=== PATIENT | female | born 1940 ===

== ENCOUNTER 2017-02-02 13:21 | Inpatient (IN) | payer MEDICARE ==
[2017-02-02 20:00] VITALS: BP 116/58; PULSE 77; RESP 18; TEMP 96.2; O2SAT 93
--- NOTE | 2017-02-02 22:46 | HHI.HP ---
History of Present Illness Chief Complaint: abdominal pain, ileus History of Present Illness 76 yo female whom I saw in consultation on 01/03/17 as an outpatient for a TAAA. She at that time had a bilobed aneurysm and the abdominal component was larger (nearly 6 cm) but also had a SMA stenosis. She had no abdominal pain at that time but did have intense back pain after a fall for which she was planning to undergo kyphoplasty. She did this and according to subsequent phone conversations I had with her and her , the back pain was better but not gone. Her aneurysm to my palpation has always been nontender and certainly on CT it was never ruptured or leaking. She was admitted to OSH about 2 weeks ago with acute cholecystitis and choledocholithiasis, and underwent lap rosa and IOC without successful extraction of the CBD stone. Ultimately this was cleared via ERCP and sphincterotomy, which was complicated by pancreatitis. The patient has had a prolonged course since then with a non- resolving ileus vs SBO. At present, she has no NGT and is not nauseated. She is passing gas. Her family requested a transfer here and I am concerned that the "failure to progress" may be in at least part, related to her mesenteric occlusion. Past/Family/Social History Past Medical History AAA TAA CVOD with CVA hyperlipidemia HTN Past Surgical History pacer lap rosa as above Social History former smoker Coded Allergies: No Known Allergies (Unverified , 02/02/17) Review of Systems ROS Limitations: Altered Mental Status (somnolent but awakens appropriately) Cardiovascular: DENIES: Chest pain Gastrointestinal: COMPLAINS OF: Abdominal pain, Nausea, Vomiting Musculoskeletal: COMPLAINS OF: Muscle aches, Back pain Physical Exam Vitals/I&O Date Time Temp Pulse Resp B/P Pulse Ox O2 Delivery O2 Flow Rate FiO2 02/02/17 20:00 96.2 77 18 116/58 93 Neuro: somnolent but arouses appropriately and conversant; no focal deficits HEENT: NC/AT Neck: no JVD Heart: reg rate Lungs: nonlabored breathing Abdomen: nontender, manoj-umbilical incision with fullness ? bowel vs hematoma vs fluid No peritonitis and really no guarding Vascular: palpable UE pulses and femoral pulses Assessment and Plan Plan 1. NC CT A/P to eval ileus vs SBO and also r/o incarcerated incisional hernia 2. May ultimately require po contrast study 3. NPO and MIVF; hold NGT unless emesis 4. CV protective meds: ASA, statin, beta magdy 5. Zosyn x 14d total for acute cholecystitis 6. Labs on adm: BMP, CBC, LFT, amylase/lipase 7. Once the ileus resolves, will need complex aortic reconstruction with SMA bypass at some point. Connor Luna MD FACS marketing representative [facility] - Heart and Vascular at [facility] [phone] Connor Luna MD Feb 02, 2017 22:46
--- NOTE | 2017-02-02 22:58 | RADRPT ---
EXAM DATE/TIME: 02/02/2017 22:40 [place] COMPARISON: No previous studies available for comparison. INDICATIONS : Recent cholecystectomy; evaluate for hernia. ORAL CONTRAST: No oral contrast ingested. RADIATION DOSE: 5.07 CTDIvol (mGy) MEDICAL HISTORY : Aneurysm, abdominal. Hypertension. SURGICAL HISTORY : Cholecystectomy. Pacemaker. ENCOUNTER: Initial ACUITY: 1 day PAIN SCALE: 5/10 LOCATION: Abdomen/pelvis TECHNIQUE: Volumetric scanning of the abdomen and pelvis was performed. Using automated exposure control and ad justment of the mA and/or kV according to patient size, radiation dose was kept as low as reasonably achievable to obtain optimal diagnostic quality images. FINDINGS: There is prominent atherosclerotic calcification of the aorta and coronary artery calcifications. The re is aneurysmal dilatation of the descending thoracic aorta at the aortic hiatus measuring 5.3 x 4.3 cm in transverse and AP dimension on axial image 22. There is a large abdominal aortic aneurysm prox imal infrarenal location measuring 7.0 x 3.7 cm in AP and transverse dimension on image 37 and at the level of the inferior mesenteric artery origin the aorta measures 6.3 x 5.7 cm in AP and transverse dimension. There is aneurysmal dilatation of the right common iliac artery at the bifurcation measuri ng up to 3.2 cm. There is contrast within the urinary bladder and throughout the large bowel with div erticulosis of the sigmoid and descending colon as well as the transverse colon. There are surgical c lips in the right upper quadrant from recent cholecystectomy. There is pneumobilia present within the common duct and intrahepatic biliary tree. There is marked distention of the stomach, and numerous d ilated loops of small intestine are noted up to 3.6 cm. There are decompressed loops of bowel in the right lower quadrant. There is a focal abdominal wall hernia at the level of the umbilicus containing contrast-filled small intestine, transverse abdominal wall defect measuring 1.2 cm. This is believed to be causing an obstruction. A there is no adenopathy. Uterus unremarkable. Spleen, pancreas, adren al glands unremarkable. There is a right-sided pleural effusion and right middle lobe and lower lobe consolidation as well as patchy lingular and left lower lobe airspace disease. CONCLUSION: 1. Small bowel obstruction with marked distention of bowel loops and stomach secondary to an abdomina l wall hernia containing a focal loop of small bowel at the level of the umbilicus. 2. The thoracic and abdominal aortic aneurysms are noted as described above. 3. Pneumobilia. 4. Pneumonia and right effusion. Carlos Eduardo Davenport MD on February 02, 2017 at 22:53 Board Certified Radiologist. This report was verified electronically.
[2017-02-02] MEDS ORDERED: LACTATED RINGER'S 1000 ML INJ 1,000 ML IV SCH (23:00)
[2017-02-02] MEDS ORDERED: DEXTROSE 50% IN WATER 50 ML VIAL(D50) IV PUSH PRN (23:00)
[2017-02-02] MEDS ORDERED: GLUCAGON 1 MG/ML VIAL OTHER PRN (23:00)
[2017-02-02] MEDS: PIPERACIL-TAZO 3.375 GM PREMIX 50 ML IV SCH (23:43)
[2017-02-02] MEDS: ENOXAPARIN SODIUM 30 MG/0.3 ML SYRINGE SQ SCH (23:43)
[2017-02-03] VITALS: BP 135/71; PULSE 80; RESP 16; TEMP 97.8; O2SAT 93
[2017-02-03 00:16] LABS: HEMATOCRIT 35.2 % (35.0-46.0); MEAN CORPUSCULAR HEMOGLOBIN 29.2 PG (27.0-34.0); MEAN CORPUSCULAR HGB CONC 31.8 % (32.0-36.0); PLATELET COUNT 250 TH/MM3 (150-450); RED BLOOD COUNT 3.83 MIL/MM3 (4.00-5.30); RED CELL DISTRIBUTION WIDTH 14.5 % (11.6-17.2); REVIEW FLAG FINAL; WHITE BLOOD COUNT 22.4 TH/MM3 (4.0-11.0)
[2017-02-03 00:40] LABS: BICARBONATE 31.4 MEQ/L (21.0-32.0)
[2017-02-03 00:45] LABS: POTASSIUM 2.9 MEQ/L (3.5-5.1)
[2017-02-03 01:53] LABS: AMYLASE 20 U/L (25-115)
[2017-02-03] MEDS: POTASSIUM CHLOR 20 MEQ PREMIX 100 ML IV SCH ×5 (02:26→22:12)
[2017-02-03 04:00] VITALS: BP 121/64; PULSE 79; RESP 18; TEMP 97.4; O2SAT 95
[2017-02-03] MEDS: PIPERACIL-TAZO 3.375 GM PREMIX 50 ML IV SCH ×3 (05:36→19:36)
[2017-02-03 05:58] LABS: MEAN CELL VOLUME 91.2 FL (80.0-100.0); MEAN CORPUSCULAR HGB CONC 32.9 % (32.0-36.0); PLATELET COUNT 247 TH/MM3 (150-450); RED BLOOD COUNT 3.51 MIL/MM3 (4.00-5.30); RED CELL DISTRIBUTION WIDTH 14.7 % (11.6-17.2); REVIEW FLAG FINAL
[2017-02-03 06:13] LABS: BICARBONATE 28.8 MEQ/L (21.0-32.0); INDIRECT BILIRUBIN 0.4 MG/DL (0.0-0.8)
[2017-02-03 06:19] LABS: POTASSIUM 2.8 MEQ/L (3.5-5.1)
[2017-02-03] MEDS: INSULIN NovoLIN REGULAR SUPPLEMENTAL SCALE SQ SCH ×3 (06:46→21:00)
[2017-02-03 08:00] VITALS: BP 136/78; PULSE 73; RESP 21; TEMP 96.3; O2SAT 95
[2017-02-03] MEDS: ASPIRIN 81 MG CHEW TAB PO SCH (08:37)
[2017-02-03] MEDS: PANTOPRAZOLE SOD 40 MG DELAYED RELEASE TAB PO SCH (08:37)
[2017-02-03] MEDS: METOPROLOL TARTRATE 25 MG TAB PO SCH ×2 (09:24→21:00)
[2017-02-03] MEDS ORDERED: BUPIVACAINE/EPINEPHRINE 0.25% 50 ML VIAL ONE (10:23)
[2017-02-03] MEDS ORDERED: GELFOAM SIZE 100 ONE (10:23)
--- NOTE | 2017-02-03 10:29 | PD.VS.PN ---
Subjective Subjective/Hospital Course Pt admitted last night and on my initial exam, I thought there was a periumbilical incisional hernia, and indeed confirmed on CT. Dr. Bui, general surgery saw patient and agreed. He has plans to perform laparoscopy today. Mrs. Ochoa feels well today and has no abdominal pain. NGT with significant output Objective Vitals/I&O Date Time Temp Pulse Resp B/P Pulse Ox O2 Delivery O2 Flow Rate FiO2 02/03/17 08:00 96.3 73 21 136/78 95 02/03/17 04:00 97.4 79 18 121/64 95 02/03/17 00:00 97.8 80 16 135/71 93 02/02/17 20:00 96.2 77 18 116/58 93 Physical Exam Resting comfortably No abdominal pain Periumbilical incision c/d/i with + hernia in place, nontender Laboratory Laboratory Tests Test 02/02/17 02/02/17 02/03/17 23:53 23:59 04:37 Amylase Level 20 Lipase 160 White Blood Count 22.4 20.0 Red Blood Count 3.83 3.51 Hemoglobin 11.2 10.5 Hematocrit 35.2 32.0 Mean Corpuscular Volume 92.0 91.2 Mean Corpuscular Hemoglobin 29.2 30.0 Mean Corpuscular Hemoglobin 31.8 32.9 Concent Red Cell Distribution Width 14.5 14.7 Platelet Count 250 247 Mean Platelet Volume 8.4 8.8 Sodium Level 147 149 Potassium Level 2.9 2.8 Chloride Level 107 110 Carbon Dioxide Level 31.4 28.8 Anion Gap 9 10 Blood Urea Nitrogen 26 25 Creatinine 0.88 0.82 Estimat Glomerular Filtration 63 68 Rate Random Glucose 89 78 Calcium Level 7.6 7.6 Total Bilirubin 1.0 Direct Bilirubin 0.6 Indirect Bilirubin 0.4 Aspartate Amino Transf 22 (AST/SGOT) Alanine Aminotransferase 17 (ALT/SGPT) Alkaline Phosphatase 181 Total Protein 5.2 Albumin 2.0 Imaging Last 48 hours Impressions Abdomen/Pelvis CT 02/02/17 0000 Signed Impressions: Service Date/Time: Thursday, February 02, 2017 22:40 - CONCLUSION: 1. Small bowel obstruction with marked distention of bowel loops and stomach secondary to an abdominal wall hernia containing a focal loop of small bowel at the level of the umbilicus. 2. The thoracic and abdominal aortic aneurysms are noted as described above. 3. Pneumobilia. 4. Pneumonia and right effusion. Carlos Eduardo Davenport MD Assessment and Plan Plan 1. Laparoscopy today for incarcerated hernia. If bowel globally ok, will hold off mesenteric revascularization. 2. NPO and MIVF; replace NGT output and recheck e-lytes at 1400 3. CV protective meds: ASA, statin, beta magdy 4. Zosyn d/c date 02/09 5. Pancreatitis has resolved chemically 6. Will get her over SBO and plan d/c with outpatient f/u to discuss aortic surgery: likely FAMILIA reconstruction and retrograde SMA revascularization 7. I discussed this plan with the patient's daughter and over the phone. They agree to plan. [phone] / [phone] Connor Luna MD FACS vp hr diversity [facility] - Heart and Vascular at [facility] [phone] Connor Luna MD Feb 03, 2017 10:29
[2017-02-03] MEDS ORDERED: SUGAMMADEX SODIUM 200 MG/2 ML VIAL IV PUSH ONE ×2 (10:34)
[2017-02-03] MEDS ORDERED: MIDAZOLAM HCL 2 MG/2 ML VIAL ONE ×3 (10:34→14:26)
[2017-02-03] MEDS ORDERED: FAMOTIDINE 20 MG/2 ML VIAL ONE ×2 (10:35→10:45)
[2017-02-03] MEDS ORDERED: PROPOFOL 200 MG/20 ML AMP IV ONE (12:17)
[2017-02-03] MEDS ORDERED: PHENYLEPH/NS 1000 MCG/10 ML SYR IV ONE (12:17)
[2017-02-03] MEDS ORDERED: ONDANSETRON HCL 4 MG/2 ML VIAL IV PUSH ONE (12:17)
[2017-02-03] MEDS ORDERED: NORMOSOL R INJ 1,000 ML IV ONE (12:17)
[2017-02-03] MEDS ORDERED: DO NOT ADM ANY ANTICOAGULANT DRUGS XX PRN (12:56)
[2017-02-03] MEDS ORDERED: fentaNYL CITRATE 250 MCG/5 ML AMP ONE (13:07)
[2017-02-03] MEDS ORDERED: MORPHINE SULFATE 4 MG/ML INJ IV PUSH PRN (14:00)
[2017-02-03] MEDS ORDERED: ONDANSETRON HCL 4 MG/2 ML VIAL IV PUSH PRN (14:00)
--- NOTE | 2017-02-03 14:04 | EKG ---
Date Performed: 02/03/2017 Time Performed: 08:24:57 PTAGE: 76 years EKG: Sinus rhythm NONSPECIFIC T-WAVE ABNORMALITY Compared to prior tracing no significant change BORDERLINE ECG PREVIOUS TRACING :02/03/17 @ 01:11:16 DOCTOR: Jose L Paris Interpretating Date/Time 02/03/2017 14:03:36
--- NOTE | 2017-02-03 14:04 | EKG ---
Date Performed: 02/03/2017 Time Performed: 01:11:16 PTAGE: 76 years EKG: Sinus rhythm poor r wave progression Abnormal ECG NO PREVIOUS TRACING DOCTOR: Jose L Paris Interpretating Date/Time 02/03/2017 14:03:01
--- NOTE | 2017-02-03 14:09 | HHI.PR ---
Immediate Post Op Note Procedure Date: Feb 03, 2017 Pre Op Diagnosis: sbo secondary to incarcerated umbilical incisional hernia Post Op Diagnosis: incarcerated viable small bowel Surgeon: Frank Bui Associate Professor Of Psychology(s): james brown Procedure: exp lap, erika, reduction of incarcerated small bowel Complications: none Anesthesia: General Drains: None IVF Patient to: PACU Patient Condition: Frank Lehman MD Feb 03, 2017 14:09
[2017-02-03 16:00] VITALS: BP 124/66; PULSE 63; RESP 18; TEMP 95.4; O2SAT 96
--- NOTE | 2017-02-03 16:55 | PD.CONS ---
cc: Mat Victor MD HPI Service General Surgery Consult Requested By Dr. Luna Reason for Consult Eval incarcerated umbilical hernia with bowel obstruction Primary Care Physician Unknown History of Present Illness This is a 76-year-old female who had a laparoscopic cholecystectomy with ERCP and sphincterotomy at outside hospital 2 weeks ago. She was transferred to this facility from [facility] in [place]. At this facility the patient had a small bowel obstruction versus ileus without any resolution. The patient was transferred to this facility per the family's request to see Dr. Luna for evaluation of her mesenteric occlusion. Upon Dr. Luna's physical examination he found an incarcerated umbilical hernia. A nasogastric tube was placed. A general surgery consultation was requested for evaluation of her incarcerated umbilical hernia with small bowel obstruction. Review of Systems Constitutional: DENIES: Fever, Weight gain, Weight loss Endocrine: DENIES: Polydipsia, Polyuria, Polyphagia Eyes: DENIES: Blurred vision, Eye pain Ears, nose, mouth, throat: DENIES: Hearing loss, Vertigo Respiratory: DENIES: Cough, Snoring Cardiovascular: DENIES: Chest pain Gastrointestinal: COMPLAINS OF: Abdominal pain, Nausea, Vomiting Genitourinary: DENIES: Urgency, Hematuria Musculoskeletal: DENIES: Joint pain, Stiffness, Joint Swelling Integumentary: DENIES: Abnormal pigmentation Hematologic/lymphatic: DENIES: Bruising Immunologic/allergic: DENIES: Eczema Neurologic: DENIES: Abnormal gait Psychiatric: DENIES: Mood changes, Depression, Hallucinations Past Family Social History Past Medical History AAA TAA CVOD with CVA hyperlipidemia HTN Past Surgical History pacer placement Laparoscopic cholecystectomy (January 2016 at OSH) Reported Medications See chart Allergies: Coded Allergies: No Known Allergies (Unverified , 02/02/17) Active Ordered Medications Current Medications Medications (Trade) Dose Ordered Sig/Thomas Route Start Time Stop Time Status Last Admin (Lr 1000 ml Inj) 1,000 ml @ 63 mls/hr [id number] IV 02/02/17 23:00 02/02/17 23:43 (Aspirin Chew) 81 mg DAILY PO 02/03/17 09:00 (Protonix) 40 mg DAILY PO 02/03/17 09:00 (Lopressor) 25 mg BID PO 02/03/17 09:00 02/03/17 09:24 (Lipitor) 40 mg HS PO 02/03/17 21:00 Enoxaparin Sodium 30 mg 30 mg Q24H SQ 02/02/17 23:00 02/02/17 23:43 (Zosyn 3.375 Gm Premix) 50 ml @ 100 mls/hr Q6H IV 02/02/17 23:00 02/03/17 11:41 (D50w (Vial) Inj) 25 ml UNSCH PRN IV PUSH 02/02/17 23:00 02/03/17 13:05 (Glucagon Inj) 1 mg UNSCH PRN OTHER 02/02/17 23:00 Miscellaneous Information ALL NURSING DEPARTME... UNSCH PRN XX 02/03/17 12:56 02/04/17 12:55 (Morphine Inj) 4 mg Q3H PRN IV PUSH 02/03/17 14:00 02/03/17 15:26 (Zofran Inj) 4 mg Q6H PRN IV PUSH 02/03/17 14:00 Family History Noncontributory Social History Former smoker Denies EtOH use Physical Exam Vital Signs Vital Signs Date Time Temp Pulse Resp B/P Pulse Ox O2 Delivery O2 Flow Rate FiO2 02/03/17 16:00 95.4 63 18 124/66 96 02/03/17 14:00 75 12 130/81 99 Nasal Cannula 2 02/03/17 13:45 70 15 135/90 100 Nasal Cannula 2 02/03/17 13:30 73 14 147/89 99 Nasal Cannula 2 02/03/17 13:15 76 15 148/89 100 Nasal Cannula 2 02/03/17 13:00 92 14 140/66 97 Nasal Cannula 2 02/03/17 12:53 97.3 110 14 112/68 95 Simple Mask 6 02/03/17 08:00 96.3 73 21 136/78 95 02/03/17 04:00 97.4 79 18 121/64 95 02/03/17 00:00 97.8 80 16 135/71 93 02/02/17 20:00 96.2 77 18 116/58 93 Physical Exam GENERAL: Elderly female resting in bed with nasogastric tube in place SKIN: Warm and dry. HEAD: Atraumatic. Normocephalic. EYES: Pupils equal and round. No scleral icterus. No injection or drainage. ENT: No nasal bleeding or discharge. Mucous membranes pink and moist. NECK: Trachea midline. CARDIOVASCULAR: Regular rate and rhythm. RESPIRATORY: No accessory muscle use. Clear to auscultation. Breath sounds equal bilaterally. GASTROINTESTINAL: Abdomen soft, umbilical hernia manually reducible. Prior laparoscopic sites are healing. MUSCULOSKELETAL: Extremities without clubbing, cyanosis, or edema. No obvious deformities. NEUROLOGICAL: Awake and alert. No obvious cranial nerve deficits. Motor grossly within normal limits. Five out of 5 muscle strength in the arms and legs. Normal speech. PSYCHIATRIC: Appropriate mood and affect; insight and judgment normal. Laboratory Laboratory Tests Test 02/02/17 02/02/17 02/03/17 02/03/17 23:53 23:59 04:37 12:00 Amylase Level 20 Lipase 160 White Blood Count 22.4 20.0 Red Blood Count 3.83 3.51 Hemoglobin 11.2 10.5 Hematocrit 35.2 32.0 Mean Corpuscular Volume 92.0 91.2 Mean Corpuscular Hemoglobin 29.2 30.0 Mean Corpuscular Hemoglobin 31.8 32.9 Concent Red Cell Distribution Width 14.5 14.7 Platelet Count 250 247 Mean Platelet Volume 8.4 8.8 Sodium Level 147 149 Potassium Level 2.9 2.8 Chloride Level 107 110 Carbon Dioxide Level 31.4 28.8 Anion Gap 9 10 Blood Urea Nitrogen 26 25 Creatinine 0.88 0.82 Estimat Glomerular Filtration 63 68 Rate Random Glucose 89 78 Calcium Level 7.6 7.6 Total Bilirubin 1.0 Direct Bilirubin 0.6 Indirect Bilirubin 0.4 Aspartate Amino Transf 22 (AST/SGOT) Alanine Aminotransferase 17 (ALT/SGPT) Alkaline Phosphatase 181 Total Protein 5.2 Albumin 2.0 Blood Type O POSITIVE Antibody Screen NEGATIVE Blood Bank Comment Result Diagram: 02/03/17 0437 02/03/17 0437 Imaging Last 48 hours Impressions Abdomen/Pelvis CT 02/02/17 0000 Signed Impressions: Service Date/Time: Thursday, February 02, 2017 22:40 - CONCLUSION: 1. Small bowel obstruction with marked distention of bowel loops and stomach secondary to an abdominal wall hernia containing a focal loop of small bowel at the level of the umbilicus. 2. The thoracic and abdominal aortic aneurysms are noted as described above. 3. Pneumobilia. 4. Pneumonia and right effusion. Carlos Eduardo Davenport MD Assessment and Plan Assessment and Plan This is a 76-year-old female status post laparoscopic cholecystectomy and outside facility with a transferred to [facility] for evaluation by vascular surgery. The patient was found to have a incarcerated umbilical hernia with a small bowel obstruction -Plan to take to the operating room today with Dr. victor -Nothing by mouth -NG tube to low intermittent wall suction -Obtain consent I CERTIFY AND ATTEST THAT I PERSONALLY SAW AND EXAMINED THE PATIENT. THE ENCOUNTER WAS DOCUMENTED BY THE OUTPATIENT THERAPIST AND ORDERS WERE ENTERED INTO THE EMR UNDER MY DIRECT SUPERVISION. I DISCUSSED THE CARE PLAN WITH THE FAMILY AND RN AT THE BEDSIDE. WILL PROCEED IMMEDIATELY TO THE OPERATING ROOM. NOTIFIED BY PHONE AND IS EN ROUTE MAT VICTOR MD FACS Pearl Villarreal [facility] Feb 03, 2017 16:55 Mat Victor MD Feb 12, 2017 13:32
--- NOTE | 2017-02-03 18:26 | PD.CONS ---
HPI Service [facility] Consult Requested By Reason for Consult Judgment of electrolyte abnormalities and comorbidities Primary Care Physician Unknown Diagnoses: History of Present Illness Patient is a 76-year-old female with history of transabdominal aortic aneurysm, history of 2 CVAs in the past, history of CAD status post [place] 2 years ago, history of AICD placement who had the laparoscopic cholecystectomy done with the ER 2 weeks ago. For the past 5 days had been complaining of nausea vomiting and abdominal pain. Per with poor po intake. sHe was transferred here on the request of the family to be evaluated by Dr. Patricia the vascular surgeon who did her aortic aneurysm repair. On evaluation here was noted to have an incarcerated umbilical hernia and [facility] was promptly called, had laparoscopic surgery with repair of incarcerated hernia. Patient is currently seen postoperatively with at bedside. Patient appears weak , open eyes and followed all commands but however is still under her anesthesia effect. She moves all extremities equally. Just received IV pain meds[facility] abnormalities and the comorbid factors. Review of Systems ROS Limitations: Clinical Condition Past Family Social History Allergies: Coded Allergies: No Known Allergies (Unverified , 02/02/17) Past Medical History History of triple a History of CVA History of CAD status post [place] History of hyperlipidemia History of hypertension Past Surgical History As stated 2 weeks ago had laparoscopic cholecystectomy Reported Medications Amiodarone 400 mg daily Lipitor 40 mg daily Plavix 75 mg daily Losartan 25 mg half tab daily Hydrocodone 5/325 mg 1 tab when necessary for back pain which has been states she takes sparingly. Active Ordered Medications See EMR Family History Noncontributory Social History History of smoking quit many many years ago Denies any alcohol use Physical Exam Vital Signs Vital Signs Date Time Temp Pulse Resp B/P Pulse Ox O2 Delivery O2 Flow Rate FiO2 02/03/17 16:00 95.4 63 18 124/66 96 02/03/17 14:00 75 12 130/81 99 Nasal Cannula 2 02/03/17 13:45 70 15 135/90 100 Nasal Cannula 2 02/03/17 13:30 73 14 147/89 99 Nasal Cannula 2 02/03/17 13:15 76 15 148/89 100 Nasal Cannula 2 02/03/17 13:00 92 14 140/66 97 Nasal Cannula 2 02/03/17 12:53 97.3 110 14 112/68 95 Simple Mask 6 02/03/17 08:00 96.3 73 21 136/78 95 02/03/17 04:00 97.4 79 18 121/64 95 02/03/17 00:00 97.8 80 16 135/71 93 02/02/17 20:00 96.2 77 18 116/58 93 Physical Exam GENERAL: Appears weak, not in acute distress, awakens easily (just postop", speech soft but clear oriented 3 SKIN: No rashes, ecchymoses or lesions. Cool and dry. HEAD: Atraumatic. Normocephalic. EYES: Pupils equal round and reactive. Extraocular motions intact. No scleral icterus. No injection or drainage. ENT: Nose without bleeding, purulent drainage or septal hematoma.Airway patent. NECK: Trachea midline. No JVD or lymphadenopathy. Supple, nontender, CARDIOVASCULAR: Regular rate and rhythm without murmurs, RESPIRATORY: Clear to auscultation. Breath sounds equal bilaterally. No wheezes , rales, or rhonchi. GASTROINTESTINAL: Well-healed post laparoscopic cholecystectomy scars, postop dressing in place MUSCULOSKELETAL: Extremities without clubbing, cyanosis, or edema. No joint tenderness, effusion, or edema noted. No calf tenderness. Moves all extremities to command- limited post anesthesia Laboratory Laboratory Tests Test 02/02/17 02/02/17 02/03/17 02/03/17 23:53 23:59 04:37 12:00 Amylase Level 20 Lipase 160 White Blood Count 22.4 20.0 Red Blood Count 3.83 3.51 Hemoglobin 11.2 10.5 Hematocrit 35.2 32.0 Mean Corpuscular Volume 92.0 91.2 Mean Corpuscular Hemoglobin 29.2 30.0 Mean Corpuscular Hemoglobin 31.8 32.9 Concent Red Cell Distribution Width 14.5 14.7 Platelet Count 250 247 Mean Platelet Volume 8.4 8.8 Sodium Level 147 149 Potassium Level 2.9 2.8 Chloride Level 107 110 Carbon Dioxide Level 31.4 28.8 Anion Gap 9 10 Blood Urea Nitrogen 26 25 Creatinine 0.88 0.82 Estimat Glomerular Filtration 63 68 Rate Random Glucose 89 78 Calcium Level 7.6 7.6 Total Bilirubin 1.0 Direct Bilirubin 0.6 Indirect Bilirubin 0.4 Aspartate Amino Transf 22 (AST/SGOT) Alanine Aminotransferase 17 (ALT/SGPT) Alkaline Phosphatase 181 Total Protein 5.2 Albumin 2.0 Blood Type O POSITIVE Antibody Screen NEGATIVE Blood Bank Comment Result Diagram: 02/03/17 0437 02/03/17 0437 Imaging Last Impressions Abdomen/Pelvis CT 02/02/17 0000 Signed Impressions: Service Date/Time: Thursday, February 02, 2017 22:40 - CONCLUSION: 1. Small bowel obstruction with marked distention of bowel loops and stomach secondary to an abdominal wall hernia containing a focal loop of small bowel at the level of the umbilicus. 2. The thoracic and abdominal aortic aneurysms are noted as described above. 3. Pneumobilia. 4. Pneumonia and right effusion. Carlos Eduardo Davenport MD Assessment and Plan Assessment and Plan 76-year-old female admitted for small bowel obstruction Small bowel obstruction secondary to incarcerated umbilical hernia status post explore lap Status post exploratory lap with repair #0 Surgery following closely Leukocytosis- likely Sepsis secondary to SBO FF CBC continue On Zosyn Continue IV fluids Incentive spirometry- . check CXR if fever persist and leukocytosis persists Hypokalemia patient received 40 mEq of IV potassium. Recheck today Hypernatremia - recheck electrolytes Continue on current IV fluids for now History of hypertension, history of AICD, history of CAD, history of CVA we'll restart meds in a.m. as soon as by mouth allowed. Currently in sinus rhythm we'll give when necessary I V Vasotec for blood pressure control if needed History of TAAA Vascular surgery ff. elective surgery Lovenox for DVT prophylaxis PPI for GI prophylaxis PT consult in a.m. for deconditioning Thank you for this consult we'll follow patient in-house with you Discussed Condition With at bedside Taco Potter MD Feb 03, 2017 18:26
[2017-02-03 20:00] VITALS: BP 132/65; PULSE 75; PULSE 80; RESP 18; TEMP 97.7; O2SAT 95
[2017-02-03 20:57] LABS: BICARBONATE 30.2 MEQ/L (21.0-32.0); POTASSIUM 3.3 MEQ/L (3.5-5.1)
[2017-02-03] MEDS: ATORVASTATIN 40 MG TAB PO SCH (21:00)
[2017-02-03] MEDS ORDERED: POTASSIUM CHLORIDE 20 MEQ PWD PACKET NG ONE (21:45)
[2017-02-03] MEDS: D5-NS + KCL 40 MEQ INJ 1,000 ML IV SCH (22:12)
[2017-02-03] MEDS: ENOXAPARIN SODIUM 30 MG/0.3 ML SYRINGE SQ SCH (22:21)
[2017-02-04] VITALS (9 sets, daily range): BP systolic 101–132; BP diastolic 55–77; PULSE 65–82; RESP 16–20; TEMP 97–98.2; O2SAT 88–95
[2017-02-04] MEDS: PIPERACIL-TAZO 3.375 GM PREMIX 50 ML IV SCH ×5 (00:46→23:04)
[2017-02-04] MEDS: POTASSIUM CHLOR 20 MEQ PREMIX 100 ML IV SCH (00:47)
[2017-02-04 04:24] LABS: AUTOMATED NEUTROPHIL # 14.4 TH/MM3 (1.8-7.7); BASOPHIL % 0.3 % (0.0-2.0); EOSINOPHIL # 0.1 TH/MM3 (0-0.4); EOSINOPHIL % 0.9 % (0.0-4.0); HEMATOCRIT 30.1 % (35.0-46.0); LYMPH % 5.7 % (9.0-44.0); MEAN CELL VOLUME 92.5 FL (80.0-100.0); MEAN CORPUSCULAR HGB CONC 32.5 % (32.0-36.0); NEUT % 86.1 % (16.0-70.0); PLATELET COUNT 199 TH/MM3 (150-450); RED BLOOD COUNT 3.25 MIL/MM3 (4.00-5.30); WHITE BLOOD COUNT 16.7 TH/MM3 (4.0-11.0)
[2017-02-04 04:28] LABS: HEMO FLAGS AUTO DIFF
[2017-02-04 04:52] LABS: BICARBONATE 30.5 MEQ/L (21.0-32.0); POTASSIUM 4.2 MEQ/L (3.5-5.1)
[2017-02-04 05:25] LABS: CALCIUM-PROTEIN CORRECTED 8.8 MG/DL (8.5-10.1)
[2017-02-04] MEDS: INSULIN NovoLIN REGULAR SUPPLEMENTAL SCALE SQ SCH ×4 (06:06→21:00)
[2017-02-04 07:03] LABS: BANDS 9 % (0-6); BASOPHILS 1 % (0-2); EOSINOPHILS 1 % (0-4); PLASMA CELLS 1 % (0-0); POLYS (SEG NEUTROPHILS) 81 % (16-70); WBC DIFF SAMPLE 100
[2017-02-04 07:04] LABS: ACANTHOCYTES OCC (NORMAL); PLATELET ESTIMATE SMEAR NORMAL (NORMAL); PLATELET MORPHOLOGY NORMAL (NORMAL); SCAN/DIFF FINAL DIFF MANUAL
--- NOTE | 2017-02-04 07:49 | PD.VS.PN ---
Subjective Subjective/Hospital Course Tolerated hernia repair yesterday Feels well overall No abdominal pain No flatus yet Objective Vitals/I&O Date Time Temp Pulse Resp B/P Pulse Ox O2 Delivery O2 Flow Rate FiO2 02/04/17 04:00 97.0 65 20 124/59 94 02/04/17 00:36 92 Nasal Cannula 2.00 02/04/17 00:00 97.7 69 18 111/55 95 02/03/17 20:00 80 02/03/17 20:00 97.7 75 18 132/65 95 02/03/17 16:00 95.4 63 18 124/66 96 02/03/17 14:00 75 12 130/81 99 Nasal Cannula 2 02/03/17 13:45 70 15 135/90 100 Nasal Cannula 2 02/03/17 13:30 73 14 147/89 99 Nasal Cannula 2 02/03/17 13:15 76 15 148/89 100 Nasal Cannula 2 02/03/17 13:00 92 14 140/66 97 Nasal Cannula 2 02/03/17 12:53 97.3 110 14 112/68 95 Simple Mask 6 02/03/17 08:00 96.3 73 21 136/78 95 02/04/17 02/04/17 02/04/17 06:59 14:59 22:59 Intake Total 300 ml 700 ml Output Total 700 ml 40 ml Balance -400 ml 660 ml Physical Exam Abdomen soft, NT except appropriately periumbilically Laboratory Laboratory Tests Test 02/03/17 02/03/17 02/04/17 12:00 19:58 03:57 Blood Type O POSITIVE Antibody Screen NEGATIVE Blood Bank Comment Sodium Level 146 148 Potassium Level 3.3 4.2 Chloride Level 108 113 Carbon Dioxide Level 30.2 30.5 Anion Gap 8 5 Blood Urea Nitrogen 19 16 Creatinine 0.72 0.72 Estimat Glomerular Filtration 79 79 Rate Random Glucose 80 90 Calcium Level 7.6 7.4 White Blood Count 16.7 Red Blood Count 3.25 Hemoglobin 9.8 Hematocrit 30.1 Mean Corpuscular Volume 92.5 Mean Corpuscular Hemoglobin 30.0 Mean Corpuscular Hemoglobin 32.5 Concent Red Cell Distribution Width 15.0 Platelet Count 199 Mean Platelet Volume 8.4 Neutrophils (%) (Auto) 86.1 Lymphocytes (%) (Auto) 5.7 Monocytes (%) (Auto) 7.0 Eosinophils (%) (Auto) 0.9 Basophils (%) (Auto) 0.3 Neutrophils # (Auto) 14.4 Lymphocytes # (Auto) 1.0 Monocytes # (Auto) 1.2 Eosinophils # (Auto) 0.1 Basophils # (Auto) 0.0 CBC Comment AUTO DIFF Differential Total Cells 100 Counted Neutrophils % (Manual) 81 Band Neutrophils % 9 Lymphocytes % 3 Monocytes % 4 Eosinophils % 1 Basophils % 1 Neutrophils # (Manual) 15.0 Differential Comment FINAL DIFF MANUAL Plasma Cells 1 Platelet Estimate NORMAL Platelet Morphology Comment NORMAL Acanthocytes OCC Protein Corrected Calcium 8.8 Total Protein 4.7 Assessment and Plan Plan 1. s/p hernia repair for incarcerated incisional hernia; awaiting return of bowel function. Strict NPO and NGT until flatus 2. continue; replace NGT output; K 4.2 today 3. CV protective meds: ASA, statin, beta magdy 4. Zosyn d/c date 02/09 5. appreciate medical service assistance 6. No acute vascular surgery issues - will plan on f/u as outpatient and schedule TAAA repair electively Connor Luna MD FACS commercial green retrofit architect [facility] at [facility] [phone] Connor Luna MD Feb 04, 2017 07:49
--- NOTE | 2017-02-04 11:33 | HHI.PR ---
Subjective Subjective Notes Resting in bed Family at bedside Objective Vitals/I&O Vital Signs Date Time Temp Pulse Resp B/P Pulse Ox O2 Delivery O2 Flow Rate FiO2 02/04/17 08:00 98.1 82 20 126/74 92 02/04/17 00:36 Nasal Cannula 2.00 Labs Laboratory Tests Test 02/03/17 02/03/17 02/04/17 12:00 19:58 03:57 Blood Type O POSITIVE Antibody Screen NEGATIVE Blood Bank Comment Sodium Level 146 148 Potassium Level 3.3 4.2 Chloride Level 108 113 Carbon Dioxide Level 30.2 30.5 Anion Gap 8 5 Blood Urea Nitrogen 19 16 Creatinine 0.72 0.72 Estimat Glomerular Filtration 79 79 Rate Random Glucose 80 90 Calcium Level 7.6 7.4 White Blood Count 16.7 Red Blood Count 3.25 Hemoglobin 9.8 Hematocrit 30.1 Mean Corpuscular Volume 92.5 Mean Corpuscular Hemoglobin 30.0 Mean Corpuscular Hemoglobin 32.5 Concent Red Cell Distribution Width 15.0 Platelet Count 199 Mean Platelet Volume 8.4 Neutrophils (%) (Auto) 86.1 Lymphocytes (%) (Auto) 5.7 Monocytes (%) (Auto) 7.0 Eosinophils (%) (Auto) 0.9 Basophils (%) (Auto) 0.3 Neutrophils # (Auto) 14.4 Lymphocytes # (Auto) 1.0 Monocytes # (Auto) 1.2 Eosinophils # (Auto) 0.1 Basophils # (Auto) 0.0 CBC Comment AUTO DIFF Differential Total Cells 100 Counted Neutrophils % (Manual) 81 Band Neutrophils % 9 Lymphocytes % 3 Monocytes % 4 Eosinophils % 1 Basophils % 1 Neutrophils # (Manual) 15.0 Differential Comment FINAL DIFF MANUAL Plasma Cells 1 Platelet Estimate NORMAL Platelet Morphology Comment NORMAL Acanthocytes OCC Protein Corrected Calcium 8.8 Total Protein 4.7 Radiology Last 48 hours Impressions Abdomen/Pelvis CT 02/02/17 0000 Signed Impressions: Service Date/Time: Thursday, February 02, 2017 22:40 - CONCLUSION: 1. Small bowel obstruction with marked distention of bowel loops and stomach secondary to an abdominal wall hernia containing a focal loop of small bowel at the level of the umbilicus. 2. The thoracic and abdominal aortic aneurysms are noted as described above. 3. Pneumobilia. 4. Pneumonia and right effusion. Carlos Eduardo Davenport MD Cardiovascular: Regular Lungs: Clear Abdomen: Other (small midline incision with dressing in place---c/d/i ) Extremities: No edema A/P Assessment and Plan 76 year old female POD1 umbilical hernia repair with SBO -Continue NGT to SHITAL -Carissa for ice chips and popsicles -OOB and mobilize -PT eval and treat -MARA Isaac at bedside I CERTIFY AND ATTEST THAT I PERSONALLY EXAMINED THIS PATIENT IN THEIR ROOM WITH THE SCIENTIFIC MANAGER PRESENT. MS CYR IS DOCUMENTING OUR VISIT IN THE EMR AND ENTERED ORDERS UNDER MY DIRECT SUPERVISION. I DISCUSSED THE CARE PLAN WITH THE PATIENT AND THEIR [facility] STAFF. Pearl Denney MD, FACSP Feb 04, 2017 11:33 Frank Bui MD Feb 12, 2017 13:42
[2017-02-04] MEDS: METOPROLOL TARTRATE 25 MG TAB PO SCH ×2 (12:23→19:56)
[2017-02-04] MEDS: PANTOPRAZOLE SOD 40 MG DELAYED RELEASE TAB PO SCH (12:23)
[2017-02-04] MEDS: ASPIRIN 81 MG CHEW TAB PO SCH (12:23)
[2017-02-04] MEDS: D5-NS + KCL 40 MEQ INJ 1,000 ML IV SCH (12:23)
--- NOTE | 2017-02-04 13:26 | HHI.PR ---
Subjective Remarks + abdominal discomfort no nausea or vomiting though with NGT clamped no flatus Objective Vitals Vital Signs Date Time Temp Pulse Resp B/P Pulse Ox O2 Delivery O2 Flow Rate FiO2 02/04/17 08:00 98.1 82 20 126/74 92 02/04/17 04:00 97.0 65 20 124/59 94 02/04/17 00:36 92 Nasal Cannula 2.00 02/04/17 00:00 97.7 69 18 111/55 95 02/03/17 20:00 80 02/03/17 20:00 97.7 75 18 132/65 95 02/03/17 16:00 95.4 63 18 124/66 96 02/03/17 14:00 75 12 130/81 99 Nasal Cannula 2 02/03/17 13:45 70 15 135/90 100 Nasal Cannula 2 02/03/17 13:30 73 14 147/89 99 Nasal Cannula 2 I/O 02/03/17 02/03/17 02/03/17 02/04/17 02/04/17 02/04/17 07:00 15:00 23:00 07:00 15:00 23:00 Intake Total 900 ml 1500 ml 600 ml 800 ml Output Total 2250 ml 720 ml 900 ml 540 ml 500 ml Balance -1350 ml 780 ml -300 ml 260 ml -500 ml Intake Oral 0 ml IV Total 900 ml 600 ml 800 ml Other 1500 ml Output Urine Total 700 ml 300 ml 400 ml 500 ml Gastric Drainage Total 2250 ml 400 ml Drainage Total 200 ml 140 ml Estimated Blood Loss 20 ml # Voids 0 1 # Bowel Movements 1 0 0 0 Result Diagram: 02/04/17 0357 02/04/17 0357 Imaging Last Impressions Abdomen/Pelvis CT 02/02/17 0000 Signed Impressions: Service Date/Time: Thursday, February 02, 2017 22:40 - CONCLUSION: 1. Small bowel obstruction with marked distention of bowel loops and stomach secondary to an abdominal wall hernia containing a focal loop of small bowel at the level of the umbilicus. 2. The thoracic and abdominal aortic aneurysms are noted as described above. 3. Pneumobilia. 4. Pneumonia and right effusion. Carlos Eduardo Davenport MD Objective Remarks awake and alert, feels weak anicteric lungs decreased breath sounds, no rales, or wheezes regular rhythm abdomen- soft, + tenderness on deep palpation, few bowel sounds extremities no edema, no calf tenderenss Procedures 02/02- s/p incarcerated umbilical hernia repair A/P Assessment and Plan 76-year-old female admitted for small bowel obstruction Small bowel obstruction secondary to incarcerated umbilical hernia status post explore lap Status post exploratory lap with repair 02/03 Surgery following closely Leukocytosis- likely Sepsis secondary to SBO WBC trending down continue On Zosyn Continue IV fluids Incentive spirometry- . check CXR if fever persist and leukocytosis persists Hypokalemia- corrected. IVF + KCL Hypernatremia - change D5NS D5 1/2 History of hypertension, history of AICD, history of CAD, history of CVA continue on BB start Plavix if cleared with GS Currently in sinus rhythm we'll give when necessary I IV Vasotec for blood pressure control if needed History of TAAA VAscular surgery- Dr. Patricia on board- elective surgery Lovenox for DVT prophylaxis PPI for GI prophylaxis PT consult in a.m. for deconditioning d/w Taco Potter MD Feb 04, 2017 13:26
[2017-02-04] MEDS: D5-1/2 NS + KCL 20 MEQ INJ 1,000 ML IV SCH (14:00)
[2017-02-04] MEDS: ATORVASTATIN 40 MG TAB PO SCH ×3 (19:54→21:00)
[2017-02-04] MEDS: ENOXAPARIN SODIUM 30 MG/0.3 ML SYRINGE SQ SCH (23:04)
[2017-02-05] VITALS (9 sets, daily range): BP systolic 97–122; BP diastolic 57–75; PULSE 65–86; RESP 16–20; TEMP 95.1–98.1; O2SAT 92–99
[2017-02-05] MEDS: D5-1/2 NS + KCL 20 MEQ INJ 1,000 ML IV SCH (04:00)
[2017-02-05] MEDS: PIPERACIL-TAZO 3.375 GM PREMIX 50 ML IV SCH ×4 (04:00→23:04)
[2017-02-05] MEDS: INSULIN NovoLIN REGULAR SUPPLEMENTAL SCALE SQ SCH ×3 (05:18→19:54)
[2017-02-05] MEDS: PANTOPRAZOLE SOD 40 MG DELAYED RELEASE TAB PO SCH (09:46)
[2017-02-05] MEDS: ASPIRIN 81 MG CHEW TAB PO SCH (09:46)
[2017-02-05] MEDS: METOPROLOL TARTRATE 25 MG TAB PO SCH ×2 (09:46→19:55)
--- NOTE | 2017-02-05 12:21 | HHI.PR ---
Subjective Subjective Notes POD2 s/p SBO Incarcerated hernia Patient doing well, minimal pain, hungry and wants food. 1 BM yesterday and 1BM this morning Patient walked around some yesterday, will try to walk today Objective Vitals/I&O Vital Signs Date Time Temp Pulse Resp B/P Pulse Ox O2 Delivery O2 Flow Rate FiO2 02/05/17 08:00 97.6 82 16 112/66 92 02/05/17 07:59 Nasal Cannula 4.00 Radiology Last 48 hours Impressions Abdomen/Pelvis CT 02/02/17 0000 Signed Impressions: Service Date/Time: Thursday, February 02, 2017 22:40 - CONCLUSION: 1. Small bowel obstruction with marked distention of bowel loops and stomach secondary to an abdominal wall hernia containing a focal loop of small bowel at the level of the umbilicus. 2. The thoracic and abdominal aortic aneurysms are noted as described above. 3. Pneumobilia. 4. Pneumonia and right effusion. Carlos Eduardo Davenport MD Cardiovascular: Regular Lungs: Clear Abdomen: Post-op tenderness, BS normal Extremities: Perfused Narrative Exam Nasal Cannula Wound Wound : Wound Location: Abdomen Appearance: Clean & Dry A/P Assessment and Plan POD2 s/p SBO incarcerated hernia patient is stable, O2 satting low 90s plan to advance diet to regular food stop IV fluids ambulate as tolerated, continue spirometry, continue PT Frank Bui MD Feb 05, 2017 12:21
--- NOTE | 2017-02-05 19:44 | HHI.PR ---
Subjective Remarks Patient denies any pain, dyspnea. On 4liters O2, using incetnive spirometry. Tolerating diet, no vomiting. Feels overall weak and not getting better. +BM Objective Vitals Vital Signs Date Time Temp Pulse Resp B/P Pulse Ox O2 Delivery O2 Flow Rate FiO2 02/05/17 16:00 95.1 73 17 103/57 99 02/05/17 12:00 98.1 67 16 122/75 94 02/05/17 08:00 97.6 82 16 112/66 92 02/05/17 07:59 95 Nasal Cannula 4.00 02/05/17 04:00 97.2 74 18 106/63 93 02/05/17 00:00 97.6 65 18 100/58 93 02/04/17 21:03 67 02/04/17 20:00 98.2 79 18 101/61 93 I/O 02/04/17 02/04/17 02/04/17 02/05/17 02/05/17 02/05/17 07:00 15:00 23:00 07:00 15:00 23:00 Intake Total 800 ml 690 ml 1180 ml 646 ml 240 ml Output Total 540 ml 950 ml 300 ml 3 ml Balance 260 ml -260 ml 880 ml 646 ml 237 ml Intake Oral 180 ml 240 ml 0 ml 240 ml IV Total 800 ml 510 ml 940 ml 646 ml Output Urine Total 400 ml 900 ml 300 ml 3 ml Gastric Drainage Total 50 ml Drainage Total 140 ml # Voids 1 1 1 # Bowel Movements 0 0 2 1 Result Diagram: 02/04/17 0357 02/04/17 0357 Objective Remarks GENERAL: Well-nourished, well-developed elderly lean CF patient. SKIN: Warm and dry. HEAD: Normocephalic. EYES: No scleral icterus. No injection or drainage. NECK: Supple, trachea midline. No JVD or lymphadenopathy. CARDIOVASCULAR: Regular rate and rhythm without murmurs, gallops, or rubs. RESPIRATORY: Breath sounds equal and CTA bilaterally. No accessory muscle use on 4 L NC. GASTROINTESTINAL: Abdomen soft, non-tender, nondistended. EXTREMITIES: No pedal edema. NEUROLOGICAL: Awake, alert, and oriented x 3. Non-focal. Procedures 02/02- s/p incarcerated umbilical hernia repair A/P Assessment and Plan 76-year-old female admitted for small bowel obstruction Small bowel obstruction secondary to incarcerated umbilical hernia status post explore lap Status post exploratory lap with repair 02/03 Surgery following closely NGT out, alan diet, with BM On morphine for pain - start pericolace for bowel regimen -S/p Cholecystitis, choldeocholithiasis S/p 2 lap rosa and IOC without successful extraction of the CBD stone S/p ERCP and sphincterotomy, which was complicated by pancreatitis. over 2 weeks ago at OSH. Leukocytosis-downtrending, on zosyn. Anemia of acute blood loss due to surgery - stable, ff H&H Hypoxemia - has 40 yr h/o tobacco use - check cxr - lungs clear. Hypokalemia- corrected. check mag level. Hypernatremia - IVF DC'ed per gen surg, repeat BMP in a.m. History of hypertension, history of AICD- cont BB, asa Hypocalcemia, corrected Ca is nml, BMP in a.m. history of CAD, history of CVA - cont asa, bb,IV Vasotec for blood pressure control if needed History of TAAA VAscular surgery- Dr. Patricia on board- elective surgery to be planned at later date/outpatient f/u deconditioning-consult PT Lovenox for DVT prophylaxis PPI for GI prophylaxis Poonam Damian MD Feb 05, 2017 19:44
[2017-02-05] MEDS: ATORVASTATIN 40 MG TAB PO SCH (19:55)
[2017-02-05] MEDS: DOCUSATE SODIUM 50 MG/SENNA 8.6 MG TAB PO SCH (19:55)
--- NOTE | 2017-02-05 20:30 | RADRPT ---
EXAM DATE/TIME: 02/05/2017 19:54 [place] COMPARISON: No previous studies available for comparison. INDICATIONS : Shortness of breath. MEDICAL HISTORY : Aneurysm, abdominal. Hypertension. SURGICAL HISTORY : Cholecystectomy. Pacemaker. ENCOUNTER: Initial ACUITY: 1 day PAIN SCORE: 0/10 LOCATION: Bilateral chest FINDINGS: A single view of the chest demonstrates hepatomegaly. Pacer lead overlies right ventricle. Dense cons olidation in the right lung especially the right upper lobe with airspace disease also at the left ba se. CONCLUSION: 1. Dense consolidation right upper lobe most characteristic of pneumonia. There may also be a mild pu lmonary edema pattern with small pleural effusions and cardiomegaly. Carlos Alberto Singh MD on February 05, 2017 at 20:28 Board Certified Radiologist. This report was verified electronically.
--- NOTE | 2017-02-05 21:50 | PD.VS.PN ---
Subjective Subjective/Hospital Course Resting comfortably, bowel function resumed. No abdominal pain Objective Vitals/I&O Date Time Temp Pulse Resp B/P Pulse Ox O2 Delivery O2 Flow Rate FiO2 02/05/17 20:00 97.5 86 20 97/67 97 02/05/17 16:00 95.1 73 17 103/57 99 02/05/17 12:00 98.1 67 16 122/75 94 02/05/17 08:00 97.6 82 16 112/66 92 02/05/17 07:59 95 Nasal Cannula 4.00 02/05/17 04:00 97.2 74 18 106/63 93 02/05/17 00:00 97.6 65 18 100/58 93 02/05/17 02/05/17 02/05/17 07:00 15:00 23:00 Intake Total 646 ml 240 ml Output Total 3 ml Balance 646 ml 237 ml Physical Exam Nontender abdomen Imaging Last 48 hours Impressions Chest X-Ray 02/05/17 0000 Signed Impressions: Service Date/Time: Sunday, February 05, 2017 19:54 - CONCLUSION: 1. Dense consolidation right upper lobe most characteristic of pneumonia. There may also be a mild pulmonary edema pattern with small pleural effusions and cardiomegaly. Carlos Alberto Singh MD Assessment and Plan Plan 1. s/p hernia repair for incarcerated incisional hernia; advancing diet 2. CV protective meds: ASA, statin, beta magdy 3. Zosyn d/c date 02/09 4. appreciate medical service assistance 5. No acute vascular surgery issues - will plan on f/u as outpatient and schedule TAAA repair electively 6. Can be d/c when appropriate from medical and gen surg standpoint Connor Luan MD FACS therapy director [facility] - [facility] at [facility] [phone] Connor Luna MD Feb 05, 2017 21:50
[2017-02-05] MEDS: ENOXAPARIN SODIUM 30 MG/0.3 ML SYRINGE SQ SCH (23:04)
[2017-02-06] VITALS (7 sets, daily range): BP systolic 99–123; BP diastolic 57–68; PULSE 72–90; RESP 16–20; TEMP 95.1–98; O2SAT 92–98
[2017-02-06] MEDS: PIPERACIL-TAZO 3.375 GM PREMIX 50 ML IV SCH ×4 (03:50→22:14)
[2017-02-06] MEDS: INSULIN NovoLIN REGULAR SUPPLEMENTAL SCALE SQ SCH (03:50)
[2017-02-06 04:39] LABS: BICARBONATE 31.4 MEQ/L (21.0-32.0); MAGNESIUM 1.5 MG/DL (1.5-2.5); POTASSIUM 3.3 MEQ/L (3.5-5.1)
[2017-02-06 04:41] LABS: AUTOMATED NEUTROPHIL # 10.6 TH/MM3 (1.8-7.7); BASOPHIL % 0.1 % (0.0-2.0); EOSINOPHIL # 0.1 TH/MM3 (0-0.4); EOSINOPHIL % 0.8 % (0.0-4.0); HEMATOCRIT 30.2 % (35.0-46.0); LYMPH % 10.6 % (9.0-44.0); LYMPHOCYTE # 1.5 TH/MM3 (1.0-4.8); MEAN CELL VOLUME 91.3 FL (80.0-100.0); MEAN CORPUSCULAR HGB CONC 32.9 % (32.0-36.0); MONO % 11.1 % (0.0-8.0); NEUT % 77.4 % (16.0-70.0); PLATELET COUNT 196 TH/MM3 (150-450); RED BLOOD COUNT 3.31 MIL/MM3 (4.00-5.30); RED CELL DISTRIBUTION WIDTH 14.9 % (11.6-17.2); WHITE BLOOD COUNT 13.7 TH/MM3 (4.0-11.0)
[2017-02-06 04:49] LABS: HEMO FLAGS AUTO DIFF
[2017-02-06] MEDS: METOPROLOL TARTRATE 25 MG TAB PO SCH ×2 (08:46→21:00)
[2017-02-06] MEDS: DOCUSATE SODIUM 50 MG/SENNA 8.6 MG TAB PO SCH ×2 (08:46→21:11)
[2017-02-06] MEDS: PANTOPRAZOLE SOD 40 MG DELAYED RELEASE TAB PO SCH (08:46)
[2017-02-06] MEDS: ASPIRIN 81 MG CHEW TAB PO SCH (08:46)
--- NOTE | 2017-02-06 09:38 | PD.VS.PN ---
Subjective Subjective/Hospital Course Resting comfortably, tolerating regular diet Still weak overall but appropriate given age, comorbidities, and prolonged hospital stay at 2 facilities. No abdominal or back pain Objective Vitals/I&O Date Time Temp Pulse Resp B/P Pulse Ox O2 Delivery O2 Flow Rate FiO2 02/06/17 08:00 96.1 83 17 113/65 93 02/06/17 04:00 97.4 72 20 99/64 93 02/06/17 00:00 98.0 80 20 100/57 94 02/05/17 22:09 92 Nasal Cannula 4.00 02/05/17 20:17 82 02/05/17 20:00 97.5 86 20 97/67 97 02/05/17 16:00 95.1 73 17 103/57 99 02/05/17 12:00 98.1 67 16 122/75 94 Physical Exam Resting comfortably Abdomen nontender Laboratory Laboratory Tests Test 02/06/17 03:49 White Blood Count 13.7 Red Blood Count 3.31 Hemoglobin 9.9 Hematocrit 30.2 Mean Corpuscular Volume 91.3 Mean Corpuscular Hemoglobin 30.0 Mean Corpuscular Hemoglobin 32.9 Concent Red Cell Distribution Width 14.9 Platelet Count 196 Mean Platelet Volume 8.6 Neutrophils (%) (Auto) 77.4 Lymphocytes (%) (Auto) 10.6 Monocytes (%) (Auto) 11.1 Eosinophils (%) (Auto) 0.8 Basophils (%) (Auto) 0.1 Neutrophils # (Auto) 10.6 Lymphocytes # (Auto) 1.5 Monocytes # (Auto) 1.5 Eosinophils # (Auto) 0.1 Basophils # (Auto) 0.0 CBC Comment AUTO DIFF Sodium Level 143 Potassium Level 3.3 Chloride Level 105 Carbon Dioxide Level 31.4 Anion Gap 7 Blood Urea Nitrogen 10 Creatinine 0.79 Estimat Glomerular Filtration 71 Rate Random Glucose 90 Calcium Level 7.5 Magnesium Level 1.5 Imaging Last 48 hours Impressions Chest X-Ray 02/05/17 0000 Signed Impressions: Service Date/Time: Sunday, February 05, 2017 19:54 - CONCLUSION: 1. Dense consolidation right upper lobe most characteristic of pneumonia. There may also be a mild pulmonary edema pattern with small pleural effusions and cardiomegaly. Carlos Alberto Singh MD Assessment and Plan Plan 1. s/p hernia repair for incarcerated incisional hernia; SBO resolved; appreciate general surgery assistance 2. CV protective meds: ASA, statin, beta magdy 3. Zosyn d/c date 02/09 - can be transitioned to something po 4. appreciate medical service assistance 5. No acute vascular surgery issues - will plan on f/u as outpatient and schedule TAAA repair electively 6. Can be d/c when appropriate from medical and gen surg standpoint; likely needs rehab given age, debilitation. Connor Luna MD FACS wood sash and frame carpenter [facility] - [facility] V[facility] at [facility] [phone] Connor Luna MD Feb 06, 2017 09:38
[2017-02-06 11:06] LABS: ACANTHOCYTES OCC (NORMAL); SCAN/DIFF AUTO DIFF CONFIRMED
[2017-02-06] MEDS ORDERED: FUROSEMIDE 40 MG/4 ML VIAL IV PUSH ONE (19:45)
[2017-02-06] MEDS ORDERED: POTASSIUM CHLORIDE 10 MEQ CONTROLLED RELEASE TAB PO ONE (19:45)
[2017-02-06] MEDS: ATORVASTATIN 40 MG TAB PO SCH (21:11)
--- NOTE | 2017-02-06 21:18 | HHI.PR ---
Subjective Remarks Patient still feels weak. Denies dyspnea. On 5 L nasal cannula. Chest x-ray results reviewed with the patient. Patient agreeable to chest CT given her tobacco history to rule out any malignancy. We discussed diuresis given the possible pulmonary edema as well as echocardiogram. Objective Vitals Vital Signs Date Time Temp Pulse Resp B/P Pulse Ox O2 Delivery O2 Flow Rate FiO2 02/06/17 20:00 98.0 90 20 110/68 95 02/06/17 16:58 92 Nasal Cannula 5.00 02/06/17 16:00 95.1 74 16 108/65 98 02/06/17 12:00 95.1 75 16 123/66 95 02/06/17 08:00 96.1 83 17 113/65 93 02/06/17 04:00 97.4 72 20 99/64 93 02/06/17 00:00 98.0 80 20 100/57 94 02/05/17 22:09 92 Nasal Cannula 4.00 I/O 02/05/17 02/05/17 02/05/17 02/06/17 02/06/17 02/06/17 07:00 15:00 23:00 07:00 15:00 23:00 Intake Total 646 ml 240 ml 120 ml 240 ml 170 ml Output Total 3 ml Balance 646 ml 237 ml 120 ml 240 ml 170 ml Intake Oral 0 ml 240 ml 120 ml 240 ml 120 ml IV Total 646 ml 50 ml Output Urine Total 3 ml # Voids 1 1 2 3 # Bowel Movements 1 1 1 Result Diagram: 02/06/17 0349 02/06/17 0349 Objective Remarks GENERAL: Well-nourished, well-developed elderly lean CF patient. SKIN: Warm and dry. HEAD: Normocephalic. EYES: No scleral icterus. No injection or drainage. NECK: Supple, trachea midline. No JVD or lymphadenopathy. CARDIOVASCULAR: Regular rate and rhythm without murmurs, gallops, or rubs. RESPIRATORY: Breath sounds equal and CTA bilaterally. No accessory muscle use on 4 L NC. GASTROINTESTINAL: Abdomen soft, non-tender, nondistended. EXTREMITIES: No pedal edema. NEUROLOGICAL: Awake, alert, and oriented x 3. Non-focal. Procedures 02/02- s/p incarcerated umbilical hernia repair A/P Assessment and Plan 76-year-old female admitted for small bowel obstruction Small bowel obstruction secondary to incarcerated umbilical hernia status post explore lap Status post exploratory lap with repair 02/03 Surgery following closely NGT out, alan diet, with BM On morphine for pain - start pericolace for bowel regimen -S/p Cholecystitis, choldeocholithiasis S/p 2 lap rosa and IOC without successful extraction of the CBD stone S/p ERCP and sphincterotomy, which was complicated by pancreatitis. over 2 weeks ago at OSH. Leukocytosis-downtrending, on zosyn. Anemia of acute blood loss due to surgery - stable, ff H&H Acute respiratory failure- chest x-ray today shows dense consolidation in the right upper lobe, I reviewed the images myself, most characteristic of pneumonia. Possible mild pulmonary edema pattern with small pleural effusions. Will check chest CT to rule out any underlying malignancy. She has been on Zosyn IV and has no cough or sputum production. I will check a BNP and echocardiogram. Give Lasix 40 mg IV 1 now. Potassium 30 mEq by mouth 1 now for the hypokalemia. Repeat BMP in the morning. Her white blood cell count has been downtrending on the Zosyn so hopefully respiratory status will improve with the additional diuresis. Hypokalemia-continue to replete. Mag level I.5 today. Hypernatremia - IVF DC'ed per gen surg, repeat BMP in a.m. History of hypertension, history of AICD- cont BB, asa Hypocalcemia, corrected Ca is nml, BMP in a.m. history of CAD, history of CVA - cont asa, bb,IV Vasotec for blood pressure control if needed History of TAAA VAscular surgery- Dr. Patricia on board- elective surgery to be planned at later date/outpatient f/u deconditioning-consult PT Lovenox for DVT prophylaxis PPI for GI prophylaxis Discharge Planning Will require [place] facility when stable for discharge. Poonam Damian MD Feb 06, 2017 21:18
[2017-02-06] MEDS: ENOXAPARIN SODIUM 30 MG/0.3 ML SYRINGE SQ SCH (22:14)
--- NOTE | 2017-02-06 23:48 | HHI.PR ---
Subjective Subjective Notes no new c/o Objective Vitals/I&O Vital Signs Date Time Temp Pulse Resp B/P Pulse Ox O2 Delivery O2 Flow Rate FiO2 02/06/17 20:00 98.0 90 20 110/68 95 02/06/17 16:58 Nasal Cannula 5.00 Labs Laboratory Tests Test 02/06/17 03:49 White Blood Count 13.7 Red Blood Count 3.31 Hemoglobin 9.9 Hematocrit 30.2 Mean Corpuscular Volume 91.3 Mean Corpuscular Hemoglobin 30.0 Mean Corpuscular Hemoglobin 32.9 Concent Red Cell Distribution Width 14.9 Platelet Count 196 Mean Platelet Volume 8.6 Neutrophils (%) (Auto) 77.4 Lymphocytes (%) (Auto) 10.6 Monocytes (%) (Auto) 11.1 Eosinophils (%) (Auto) 0.8 Basophils (%) (Auto) 0.1 Neutrophils # (Auto) 10.6 Lymphocytes # (Auto) 1.5 Monocytes # (Auto) 1.5 Eosinophils # (Auto) 0.1 Basophils # (Auto) 0.0 CBC Comment AUTO DIFF Differential Comment AUTO DIFF CONFIRMED Acanthocytes OCC Sodium Level 143 Potassium Level 3.3 Chloride Level 105 Carbon Dioxide Level 31.4 Anion Gap 7 Blood Urea Nitrogen 10 Creatinine 0.79 Estimat Glomerular Filtration 71 Rate Random Glucose 90 Calcium Level 7.5 Magnesium Level 1.5 B-Type Natriuretic Peptide 1507 Radiology Last 48 hours Impressions Abdomen/Pelvis CT 02/02/17 0000 Signed Impressions: Service Date/Time: Thursday, February 02, 2017 22:40 - CONCLUSION: 1. Small bowel obstruction with marked distention of bowel loops and stomach secondary to an abdominal wall hernia containing a focal loop of small bowel at the level of the umbilicus. 2. The thoracic and abdominal aortic aneurysms are noted as described above. 3. Pneumobilia. 4. Pneumonia and right effusion. Carlos Eduardo Davenport MD Cardiovascular: Regular Lungs: Clear Abdomen: Non-distended, Post-op tenderness Extremities: Perfused, SCD's on A/P Assessment and Plan 76yo female s/p lap umbilical hernia repair, stable. - tolerating diet, having BMs - OOB - home soon Jose Person MD Feb 06, 2017 23:48
[2017-02-07] VITALS (8 sets, daily range): BP systolic 111–124; BP diastolic 59–76; PULSE 74–86; RESP 17–20; TEMP 95.4–98.2; O2SAT 93–96
[2017-02-07] MEDS: PIPERACIL-TAZO 3.375 GM PREMIX 50 ML IV SCH ×4 (04:04→22:45)
[2017-02-07 05:25] LABS: AUTOMATED NEUTROPHIL # 9.6 TH/MM3 (1.8-7.7); BASOPHIL # 0.1 TH/MM3 (0-0.2); BASOPHIL % 0.6 % (0.0-2.0); EOSINOPHIL # 0.1 TH/MM3 (0-0.4); EOSINOPHIL % 0.4 % (0.0-4.0); HEMATOCRIT 32.1 % (35.0-46.0); LYMPH % 8.1 % (9.0-44.0); MEAN CELL VOLUME 91.9 FL (80.0-100.0); MEAN CORPUSCULAR HEMOGLOBIN 29.2 PG (27.0-34.0); MEAN CORPUSCULAR HGB CONC 31.8 % (32.0-36.0); MONO % 10.8 % (0.0-8.0); NEUT % 80.1 % (16.0-70.0); PLATELET COUNT 186 TH/MM3 (150-450); RED CELL DISTRIBUTION WIDTH 14.7 % (11.6-17.2)
[2017-02-07 05:48] LABS: HEMO FLAGS AUTO DIFF
[2017-02-07 05:52] LABS: BICARBONATE 30.2 MEQ/L (21.0-32.0)
[2017-02-07 06:28] LABS: POTASSIUM 2.9 MEQ/L (3.5-5.1)
[2017-02-07 06:46] LABS: CALCIUM-PROTEIN CORRECTED 8.3 MG/DL (8.5-10.1)
[2017-02-07 07:04] LABS: ACANTHOCYTES OCC (NORMAL); BANDS 8 % (0-6); EOSINOPHILS 1 % (0-4); NEUTROPHIL # MANUAL DIFF 9.8 TH/MM3 (1.8-7.7); POLYS (SEG NEUTROPHILS) 74 % (16-70); WBC DIFF SAMPLE 100
[2017-02-07 07:05] LABS: PLATELET ESTIMATE SMEAR NORMAL (NORMAL); PLATELET MORPHOLOGY NORMAL (NORMAL); SCAN/DIFF FINAL DIFF MANUAL
[2017-02-07] MEDS ORDERED: POTASSIUM CHLORIDE 10 MEQ CONTROLLED RELEASE TAB PO ONE ×2 (08:00→09:45)
--- NOTE | 2017-02-07 08:35 | PD.VS.PN ---
Subjective Subjective/Hospital Course Doing great this morning - walked with her yesterday No abdominal pain Tolerating regular diet Objective Vitals/I&O Date Time Temp Pulse Resp B/P Pulse Ox O2 Delivery O2 Flow Rate FiO2 02/07/17 04:00 98.2 86 20 112/64 95 02/07/17 00:00 97.4 84 20 116/70 96 02/06/17 20:00 98.0 90 20 110/68 95 02/06/17 20:00 74 02/06/17 16:58 92 Nasal Cannula 5.00 02/06/17 16:00 95.1 74 16 108/65 98 02/06/17 12:00 95.1 75 16 123/66 95 02/07/17 02/07/17 02/07/17 07:00 15:00 23:00 Intake Total 240 ml Output Total 1000 ml Balance -760 ml Physical Exam Incision c/d/i No tenderness Laboratory Laboratory Tests Test 02/07/17 04:51 White Blood Count 12.0 Red Blood Count 3.50 Hemoglobin 10.2 Hematocrit 32.1 Mean Corpuscular Volume 91.9 Mean Corpuscular Hemoglobin 29.2 Mean Corpuscular Hemoglobin 31.8 Concent Red Cell Distribution Width 14.7 Platelet Count 186 Mean Platelet Volume 8.7 Neutrophils (%) (Auto) 80.1 Lymphocytes (%) (Auto) 8.1 Monocytes (%) (Auto) 10.8 Eosinophils (%) (Auto) 0.4 Basophils (%) (Auto) 0.6 Neutrophils # (Auto) 9.6 Lymphocytes # (Auto) 1.0 Monocytes # (Auto) 1.3 Eosinophils # (Auto) 0.1 Basophils # (Auto) 0.1 CBC Comment AUTO DIFF Differential Total Cells 100 Counted Neutrophils % (Manual) 74 Band Neutrophils % 8 Lymphocytes % 6 Monocytes % 11 Eosinophils % 1 Neutrophils # (Manual) 9.8 Differential Comment FINAL DIFF MANUAL Platelet Estimate NORMAL Platelet Morphology Comment NORMAL Acanthocytes OCC Sodium Level 141 Potassium Level 2.9 Chloride Level 101 Carbon Dioxide Level 30.2 Anion Gap 10 Blood Urea Nitrogen 9 Creatinine 0.73 Estimat Glomerular Filtration 78 Rate Random Glucose 81 Calcium Level 7.3 Protein Corrected Calcium 8.3 Total Protein 5.3 Assessment and Plan Plan 1. s/p hernia repair for incarcerated incisional hernia; SBO resolved; appreciate general surgery assistance 2. CV protective meds: ASA, statin, beta magdy 3. Zosyn d/c date 02/09 - can be transitioned to something po 4. appreciate medical service assistance 5. Replete K and recheck at 1400 6. No acute vascular surgery issues - will plan on f/u as outpatient and schedule TAAA repair electively 7. Can be d/c when appropriate from medical and gen surg standpoint; likely needs rehab given age, debilitation. Connor Luna MD FACS denture finisher [facility] [phone] Connor Luna MD Feb 07, 2017 08:35
[2017-02-07] MEDS: DOCUSATE SODIUM 50 MG/SENNA 8.6 MG TAB PO SCH ×2 (09:00→21:00)
--- NOTE | 2017-02-07 09:36 | RADRPT ---
EXAM DATE/TIME: 02/07/2017 09:03 [place] COMPARISON: CT ABDOMEN & PELVIS W/O CONTRAST, February 02, 2017, 22:40. INDICATIONS : Shortness of breath, evaluate for pneumonia. RADIATION DOSE: 5.1 CTDIvol (mGy) MEDICAL HISTORY : Myocardial infarction. Hypertension. SURGICAL HISTORY : Pacemaker. ENCOUNTER: Initial ACUITY: 1 day PAIN SCALE: 0/10 LOCATION: Bilateral chest TECHNIQUE: Volumetric scanning of the chest was performed. Using automated exposure control and adjustment of t he mA and/or kV according to patient size, radiation dose was kept as low as reasonably achievable to obtain optimal diagnostic quality images. FINDINGS: LUNGS: Bilateral airspace disease, most prominent in the right upper lobe. There are patchy areas in the lef t upper and left lower lobe as well. Consolidation in the right base is probably atelectatic associat ed with the adjacent effusion. PLEURAE: Moderate-sized right-sided effusion. Very tiny left-sided effusion. MEDIASTINUM: The heart and great vessels demonstrate no acute abnormality. There is no mediastinal or hilar lymph adenopathy. Atherosclerotic calcification of the coronary arteries AXILLAE: Within normal limits. No lymphadenopathy. MUSCULOSKELETAL: Within normal limits for patient age. MISCELLANEOUS: Improving pneumobilia. Patient is status post cholecystectomy. The aorta at the junction of the thora cic and abdominal components near the diaphragmatic hiatus is aneurysmal at 4.3 cm. CONCLUSION: 1. Bilateral pneumonic infiltrates, right greater than left. 2. Small to moderate-sized right-sided effusion. 3. Improving pneumobilia. 4. 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 Keo Rodríguez MD on February 07, 2017 at 9:28 Board Certified Radiologist. This report was verified electronically.
[2017-02-07] MEDS: ASPIRIN 81 MG CHEW TAB PO SCH (09:49)
[2017-02-07] MEDS: METOPROLOL TARTRATE 25 MG TAB PO SCH ×2 (09:50→21:02)
[2017-02-07] MEDS: PANTOPRAZOLE SOD 40 MG DELAYED RELEASE TAB PO SCH (09:51)
--- NOTE | 2017-02-07 10:21 | MP ---
cc: MAT VICTOR M.D. DATE OF SURGERY: 02/03/2017 PREOPERATIVE DIAGNOSIS Small bowel obstruction secondary to incarcerated umbilical incisional hernia. POSTOPERATIVE DIAGNOSIS 1. Small bowel obstruction secondary to incarcerated umbilical incisional hernia. 2. Incarcerated small bowel (viable). PROCEDURE PERFORMED Exploratory laparotomy with repair and reduction of incarcerated ventral incisional hernia. SURGEON Mat Victor MD VOCATIONAL TECHNICAL EDUCATION TEACHER Hilton Melendez MD SECOND PSYCHOLOGICAL EXAMINER Marybeth Escamilla, MS III ANESTHESIA General endotracheal. COMPLICATIONS None. INDICATION FOR PROCEDURE Ms. Ochoa is a pleasant 76-year-old female who underwent laparoscopic cholecystectomy about 2 weeks ago down at [facility]. Postoperatively the patient did not recover well. She has a known thoracoabdominal aneurysm. She was transferred to the care of Dr. Luna, Vascular Surgery for consideration of mesenteric ischemia and the thoracoabdominal aneurysm. Dr. Luna performed a physical exam upon her arrival and noted that she had a periumbilical mass concerning for an umbilical incisional hernia after laparoscopic cholecystectomy. He ordered a CT scan the abdomen and pelvis which confirmed a small bowel obstruction secondary to the umbilical incisional hernia. The patient had no signs of sepsis. Specifically, she is not tachycardic, hypertensive or febrile. She did have nausea and vomiting and NG tube was placed and this returned 2 liters. The patient was seen, evaluated by myself this morning. I recommended immediate surgical intervention. The patient was agreeable. INTRAOPERATIVE FINDINGS The patient had a loop of small bowel that was stuck in the hernia sac in the infraumbilical region. It was kinked at about 90 degrees. Bowel overall was healthy and viable with minimal ecchymosis and no discoloration or ischemic changes. The bowel was stuck within the hernia sac and it was carefully dissected out using sharp dissection. Once the small bowel was freed up completely, it was returned to the abdominal cavity without any difficulty. DETAILS OF PROCEDURE The patient was identified, brought to the operating room and placed supine on the operating table. After adequate general endotracheal anesthesia was achieved, the abdomen was prepped and draped in standard surgical fashion. 0.25% Marcaine was injected in the skin and subcutaneous tissue below the umbilicus. A transverse incision was made across the umbilicus along the previous laparoscopic cholecystectomy incision. Immediately we encountered a hernia sac. Hernia sac was opened and found to contain viable small bowel. The hernia sac was then carefully dissected out. Hernia sac was opened widely. Small bowel was densely adherent to the hernia sac. This was carefully taken down with a combination of blunt and sharp scissor dissection. The bowel was freed up circumferentially. This was a very tedious dissection, did take fair amount of time in order to free it up completely. The bowel was intact and no enterotomies were made and no significant serosal tears were made. Once the bowel was freed up completely the fascial opening was then opened slightly in order to allow the bowel to return to the abdominal cavity. First we pulled the small bowel out and inspected it and the bowel that we pulled out appeared viable with no ischemic changes. Once we did reduce the incarcerated hernia the bowel itself of the mesentery did have a slight venous ooze. Using direct pressure, electrocautery Bovie as well as hemostatic agents we were able to stop all bleeding. Again, the bowel was healthy but mildly edematous. It was returned to the abdominal cavity. The omentum was placed over the small bowel. Attention was now directed to repair of the umbilical hernia. Umbilical hernia was closed primarily using 0-Prolene interrupted. Skin and subcutaneous tissue was then copiously irrigated and the skin was closed with 4-0 Monocryl. Sterile dressings were applied. The patient tolerated the procedure well. She was successfully extubated, brought to recovery in stable condition. MD VARUN Georges/MARK /2:04 PM /9:59 AM
--- NOTE | 2017-02-07 10:54 | HHI.PR ---
Subjective Subjective Notes Resting in bed Feels weak Pain controlled Objective Vitals/I&O Vital Signs Date Time Temp Pulse Resp B/P Pulse Ox O2 Delivery O2 Flow Rate FiO2 02/07/17 09:27 93 Nasal Cannula 4.00 02/07/17 08:00 95.4 76 18 119/69 Labs Laboratory Tests Test 02/07/17 04:51 White Blood Count 12.0 Red Blood Count 3.50 Hemoglobin 10.2 Hematocrit 32.1 Mean Corpuscular Volume 91.9 Mean Corpuscular Hemoglobin 29.2 Mean Corpuscular Hemoglobin 31.8 Concent Red Cell Distribution Width 14.7 Platelet Count 186 Mean Platelet Volume 8.7 Neutrophils (%) (Auto) 80.1 Lymphocytes (%) (Auto) 8.1 Monocytes (%) (Auto) 10.8 Eosinophils (%) (Auto) 0.4 Basophils (%) (Auto) 0.6 Neutrophils # (Auto) 9.6 Lymphocytes # (Auto) 1.0 Monocytes # (Auto) 1.3 Eosinophils # (Auto) 0.1 Basophils # (Auto) 0.1 CBC Comment AUTO DIFF Differential Total Cells 100 Counted Neutrophils % (Manual) 74 Band Neutrophils % 8 Lymphocytes % 6 Monocytes % 11 Eosinophils % 1 Neutrophils # (Manual) 9.8 Differential Comment FINAL DIFF MANUAL Platelet Estimate NORMAL Platelet Morphology Comment NORMAL Acanthocytes OCC Sodium Level 141 Potassium Level 2.9 Chloride Level 101 Carbon Dioxide Level 30.2 Anion Gap 10 Blood Urea Nitrogen 9 Creatinine 0.73 Estimat Glomerular Filtration 78 Rate Random Glucose 81 Calcium Level 7.3 Protein Corrected Calcium 8.3 Magnesium Level 1.5 Total Protein 5.3 Radiology Last 48 hours Impressions Abdomen/Pelvis CT 02/02/17 0000 Signed Impressions: Service Date/Time: Thursday, February 02, 2017 22:40 - CONCLUSION: 1. Small bowel obstruction with marked distention of bowel loops and stomach secondary to an abdominal wall hernia containing a focal loop of small bowel at the level of the umbilicus. 2. The thoracic and abdominal aortic aneurysms are noted as described above. 3. Pneumobilia. 4. Pneumonia and right effusion. Carlos Eduardo Davenport MD Cardiovascular: Regular Lungs: Clear Abdomen: Other (Incision sites c/d/i; abdomen soft ), Post-op tenderness Extremities: No edema A/P Assessment and Plan 76 year old female POD4 umbilical hernia repair with SBO -Regular diet---added Ensure -Replace K -OOB and mobilize -PT eval and treat I CERTIFY AND ATTEST THAT I PERSONALLY EXAMINED THIS PATIENT IN THEIR ROOM WITH THE OIL DERRICK OPERATOR PRESENT. MS CYR IS DOCUMENTING OUR VISIT IN THE EMR AND ENTERED ORDERS UNDER MY DIRECT SUPERVISION. I DISCUSSED THE CARE PLAN WITH THE PATIENT AND THEIR [facility]. Pearl Denney MD, FACS Feb 07, 2017 10:54 Frank Bui MD Feb 12, 2017 13:43
--- NOTE | 2017-02-07 11:27 | HHI.PR ---
Subjective Remarks f/u for hypoxia and abdominal pain. patient denied any SOB or pain. She stated that she is feeling better. she has no complaints and remains afebrile. her is at the bedside. Objective Vitals Vital Signs Date Time Temp Pulse Resp B/P Pulse Ox O2 Delivery O2 Flow Rate FiO2 02/07/17 09:27 93 Nasal Cannula 4.00 02/07/17 08:00 95.4 76 18 119/69 93 02/07/17 04:00 98.2 86 20 112/64 95 02/07/17 00:00 97.4 84 20 116/70 96 02/06/17 20:00 98.0 90 20 110/68 95 02/06/17 20:00 74 02/06/17 16:58 92 Nasal Cannula 5.00 02/06/17 16:00 95.1 74 16 108/65 98 02/06/17 12:00 95.1 75 16 123/66 95 I/O 02/06/17 02/06/17 02/06/17 02/07/17 02/07/17 02/07/17 07:00 15:00 23:00 07:00 15:00 23:00 Intake Total 240 ml 170 ml 480 ml 240 ml Output Total 550 ml 1000 ml Balance 240 ml 170 ml -70 ml -760 ml Intake Oral 240 ml 120 ml 480 ml 240 ml IV Total 50 ml Output Urine Total 550 ml 1000 ml # Voids 2 3 # Bowel Movements 1 1 0 0 Result Diagram: 02/07/17 0451 02/07/17 0451 Objective Remarks GENERAL: in NAD. CARDIOVASCULAR: Regular rate and rhythm without murmurs, gallops, or rubs. RESPIRATORY: B/L crackles. GASTROINTESTINAL: Abdomen soft, non-tender, nondistended. wounds are dry clean and intact. MUSCULOSKELETAL: No cyanosis, or edema. BACK: Nontender without obvious deformity. No CVA tenderness. Procedures 02/02- s/p incarcerated umbilical hernia repair Medications and IVs Current Medications Lactated Ringer's (Lr 1000 ml Inj) 1,000 ml @ 63 mls/hr [id number] IV Last administered on 02/02/17t 23:43; Start 02/02/17 at 23:00; Stop 02/03/17 at 21:29 ; Status DC Aspirin (Aspirin Chew) 81 mg DAILY PO Last administered on 02/07/17 09:49; Start 02/03/17 at 09:00 Pantoprazole Sodium (Protonix) 40 mg DAILY PO Last administered on 02/07/17 09 :51; Start 02/03/17 at 09:00 Metoprolol Tartrate (Lopressor) 25 mg BID PO Last administered on 02/07/17 09: 50; Start 02/03/17 at 09:00 Atorvastatin Calcium (Lipitor) 40 mg HS PO Last administered on 02/06/17 21:11 ; Start 02/03/17 at 21:00 Enoxaparin Sodium 30 mg 30 mg Q24H SQ Last administered on 02/06/17 22:14; Start 02/02/17 at 23:00 Piperacillin Sod/ Tazobactam Sod (Zosyn 3.375 Gm Premix) 50 ml @ 100 mls/hr Q6H IV Last administered on 02/07/17 10:15; Start 02/02/17 at 23:00 Dextrose (D50w (Vial) Inj) 25 ml UNSCH PRN IV PUSH HYPOGLYCEMIA-SEE COMMENTS Last administered on 02/03/17 13:05; Start 02/02/17 at 23:00; Stop 02/06/17 at 10:27; Status DC Glucagon (Glucagon Inj) 1 mg UNSCH PRN OTHER HYPOGLYCEMIA-SEE COMMENTS; Start 02/02/17 at 23:00; Stop 02/06/17 at 10:27; Status DC Insulin Human Regular 1 1 ACHS SLIDING SCALE SQ Last administered on 21:00; Start 02/03/17 at 07:00; Stop 02/06/17 at 10:27; Status DC Potassium Chloride 100 ml @ 50 mls/hr Q2H IV Last administered on 02/03/17 06 :48; Start 02/03/17 at 03:00; Stop 02/03/17 at 06:59; Status DC Potassium Chloride (KCl 20 Meq Premix Inj) 100 ml @ 50 mls/hr Q2H IV Last administered on 02/03/17 10:39; Start 02/03/17 at 07:00; Stop 02/03/17 at 10:59 ; Status DC Gelatin (Gelfoam 100 Top) 1 foam STK-MED ONCE .ROUTE ; Start 02/03/17 at 10:23; Stop 02/03/17 at 10:24; Status DC Bupivacaine HCl/ Epinephrine Bitart (Sensorcaine-Epinephrine 0.25% Inj) 50 ml STK-MED ONCE .ROUTE Last administered on 02/03/17 11:43; Start 02/03/17 at 10: 23; Stop 02/03/17 at 10:24; Status DC Midazolam HCl (Versed Inj) 2 mg STK-MED ONCE .ROUTE ; Start 02/03/17 at 10:34; Stop 02/03/17 at 10:35; Status DC Sugammadex Sodium (Bridion Inj) 200 mg STK-MED ONCE IV PUSH ; Start 02/03/17 at 10:34; Stop 02/03/17 at 10:35; Status DC Famotidine (Pepcid Inj) 20 mg STK-MED ONCE .ROUTE ; Start 02/03/17 at 10:35; Stop 02/03/17 at 10:36; Status DC Midazolam HCl (Versed Inj) 2 mg STK-MED ONCE .ROUTE Last administered on 10:46; Start 02/03/17 at 10:45; Stop 02/03/17 at 10:46; Status DC Famotidine (Pepcid Inj) 20 mg STK-MED ONCE .ROUTE Last administered on 10:45; Start 02/03/17 at 10:45; Stop 02/03/17 at 10:46; Status DC Fentanyl Citrate (fentaNYL INJ) 250 mcg STK-MED ONCE .ROUTE ; Start 02/03/17 at 13:07; Stop 02/03/17 at 13:08; Status DC Miscellaneous Information ALL NURSING DEPARTME... UNSCH PRN XX SEE LABEL COMMENTS; Start 02/03/17 at 12:56; Stop 02/04/17 at 12:55; Status DC Morphine Sulfate (Morphine Inj) 4 mg Q3H PRN IV PUSH PAIN SCALE 1 TO 7 Last administered on 02/03/17 15:26; Start 02/03/17 at 14:00 Ondansetron HCl (Zofran Inj) 4 mg Q6H PRN IV PUSH NAUSEA; Start 02/03/17 at 14: 00 Midazolam HCl 2 mg 2 mg STK-MED ONCE .ROUTE ; Start 02/03/17 at 14:26; Stop at 14:27; Status DC Potassium Chloride 100 ml @ 50 mls/hr Q2H IV Last administered on 02/04/17 00 :47; Start 02/03/17 at 22:00; Stop 02/04/17 at 01:59; Status DC Potassium Chloride/Dextrose/ Sod Cl (D5-NS + KCl 40 Meq Inj) 1,000 ml @ 70 mls/ hr [id number] IV Last administered on 02/04/17 12:23; Start 02/03/17 at 21:45; Stop 02/04/17 at 13:29; Status DC Potassium Chloride 40 meq 40 meq NOW ONCE NG ; Start 02/03/17 at 21:45; Stop at 21:46; Status Cancel Potassium Chloride/Dextrose/ Sod Cl (D5-1/2 NS + KCl 20 Meq Inj) 1,000 ml @ 70 mls/hr [id number] IV Last administered on 02/05/17 04:00; Start 02/04/17 at 14:00 ; Stop 02/05/17 at 11:22; Status DC Senna/Docusate Sodium (Mi-Colace) 1 tab BID PO Last administered on 21:11; Start 02/05/17 at 21:00 Potassium Chloride (KCl) 30 meq ONCE ONCE PO Last administered on 02/06/17 21 :12; Start 02/06/17 at 19:45; Stop 02/06/17 at 19:46; Status DC Furosemide (Lasix Inj) 40 mg ONCE ONCE IV PUSH Last administered on 02/06/17 21:11; Start 02/06/17 at 19:45; Stop 02/06/17 at 19:46; Status DC Potassium Chloride (KCl) 30 meq ONCE ONCE PO Last administered on 02/07/17 09 :50; Start 02/07/17 at 08:00; Stop 02/07/17 at 08:01; Status DC Potassium Chloride (KCl) 30 meq ONCE ONCE PO Last administered on 02/07/17 09 :53; Start 02/07/17 at 09:45; Stop 02/07/17 at 09:49; Status DC A/P Assessment and Plan 76-year-old female admitted for small bowel obstruction Small bowel obstruction secondary to incarcerated umbilical hernia status post explore lap Status post exploratory lap with repair 3/23 -IMPROVING -Surgery ff -tolerating PO intake. -on narcotics and pericolic . S/p Cholecystitis, choledocholithiasis S/p 2 lap rosa and IOC without successful extraction of the CBD stone S/p ERCP and sphincterotomy, which was complicated by pancreatitis. over 2 weeks ago at OSH. -Asymptomatic. -Patient currently on Zosyn. Anemia of acute blood loss due to surgery - stable, ff H&H Acute respiratory failure with hypoxia -Improving but patient continues to be on oxygen. -Most likely due to combination of pneumonia and being volume overloaded. -CT scan showed bilateral pneumonia with pleural effusion. Patient also has an elevated BNP of 1500. Pending echo. -On Zosyn. Bilateral pneumonia -Clinically patient is improving. Continue with Zosyn. -We will consider transitioning to oral medication tomorrow. Hypokalemia/hypomagnesemia -We place as needed. Hypernatremia -Resolved. Due to dehydration. hx hypertension, history of AICD - cont BB, asa Hypocalcemia, corrected Ca -Continue replenished. history of CAD, history of CVA -cont asa, bb,IV Vasotec for blood pressure control if needed. History of TAAA -Vascular surgery- Dr. Patricia on board- elective surgery to be planned at later date/outpatient f/u. deconditioning-consult PT Lovenox for DVT prophylaxis PPI for GI prophylaxis Discharge Planning Once medically stable to be discharged to SNF. Dr. Luna asked to take over care as attending. Since there is no surgical issue at the moment will take over as attending. Mae Flores MD Feb 07, 2017 11:27
[2017-02-07] MEDS ORDERED: MAGNESIUM SULFATE 1 GM PREMIX 100 ML IV ONE (11:30)
[2017-02-07] MEDS: FUROSEMIDE 20 MG TAB PO SCH (13:47)
[2017-02-07 16:30] LABS: BICARBONATE 29.5 MEQ/L (21.0-32.0); POTASSIUM 3.2 MEQ/L (3.5-5.1)
[2017-02-07] MEDS ORDERED: ROLLER WALKER1 MI1 (17:06)
[2017-02-07] MEDS ORDERED: POTASSIUM CHLORIDE 20 MEQ CONTROLLED RELEASE TAB PO ONE (17:15)
--- NOTE | 2017-02-07 17:21 | EC ---
Study Study Date:02/07/2017 STUDY CONCLUSIONS SUMMARY - Left ventricle: The cavity size was normal. Wall thickness was normal. Systolic function was moderately reduced. The estimated ejection fraction was in the range of 30% to 35%. Diffuse hypokinesis. The study is not technically sufficient to allow evaluation of LV diastolic function. - Aortic valve: Trace regurgitation. - Mitral valve: Mild to moderate regurgitation. - Pericardium, extracardiac: A trivial pericardial effusion was identified. If LV function is below 40, please consider prescribing an ACEI or ARB or document rationale for non-use. PROCEDURE DATA STUDY STATUS: Elective. Procedure: Transthoracic echocardiography. Image quality was good. Scanning was performed from the parasternal, apical, and subcostal acoustic windows. Study completion: The patient tolerated the procedure well. Transthoracic echocardiography. M-mode, complete 2D, complete spectral Doppler, and color Doppler. Patient status: Inpatient. CARDIAC ANATOMY LEFT VENTRICLE: The cavity size was normal. Wall thickness was normal. Systolic function was moderately reduced. The estimated ejection fraction was in the range of 30% to 35%. Diffuse hypokinesis. The study is not technically sufficient to allow evaluation of LV diastolic function. AORTIC VALVE: The valve appears to be grossly normal. Trileaflet. Doppler: There was no stenosis. Trace regurgitation. MITRAL VALVE: Mildly thickened leaflets, . Doppler: There was no evidence for stenosis. Mild to moderate regurgitation. Mean gradient: 2mm Hg (D). Peak gradient: 4mm Hg (D). LEFT ATRIUM: The atrium was normal in size. RIGHT VENTRICLE: The cavity size was normal. Pacer wire or catheter noted in right ventricle. PULMONIC VALVE: Not well visualized. Doppler: There was no evidence for stenosis. No significant regurgitation. TRICUSPID VALVE: The valve appears to be grossly normal. Doppler: There was no evidence for stenosis. Trace regurgitation. PERICARDIUM: A trivial pericardial effusion was identified. BASIC MEASUREMENTS ADULT NORMAL Left ventricle LV internal dimension, ED, chordal level, 45.1 mm 43-52 PLAX LV posterior wall thickness, ED 7.14 mm IVS/LVPW ratio, ED 1.08 <1.3 Ventricular septum Septal thickness, ED 7.7 mm Aortic valve Leaflet separation 18 mm 15-26 Left atrium Anterior-posterior dimension 30 mm Right ventricle RV internal dimension, ED, PLAX 22.3 mm 19-38 BASIC MEASUREMENTS ADULT NORMAL Aortic valve Leaflet separation 18 mm 15-26 Aorta Root diameter, ED 25 mm 20-37 DOPPLER MEASUREMENTS ADULT NORMAL Aortic valve Peak velocity, S 146 cm/s VTI, S 35.9 cm Mitral valve Mean velocity, D 61.2 cm/s Mean gradient, D 2 mm Hg Peak gradient, D 4 mm Hg Maximal regurgitant velocity 534 cm/s Tricuspid valve Regurgitant peak velocity 269 cm/s Peak RV-RA gradient, S 29 mm Hg Maximal regurgitant velocity 269 cm/s LEGEND: Mean values are shown as u=mean value. Asterisk (*) lopez values outside specified normal range. Prepared and signed by Jose Rodas [id number]
[2017-02-07] MEDS: ATORVASTATIN 40 MG TAB PO SCH (21:01)
[2017-02-07] MEDS: ENOXAPARIN SODIUM 30 MG/0.3 ML SYRINGE SQ SCH (22:45)
[2017-02-08] VITALS (7 sets, daily range): BP systolic 112–126; BP diastolic 60–80; PULSE 72–85; RESP 16–20; TEMP 96.8–97.9; O2SAT 93–97
[2017-02-08] MEDS: PIPERACIL-TAZO 3.375 GM PREMIX 50 ML IV SCH ×2 (04:58→12:45)
[2017-02-08 05:02] LABS: HEMATOCRIT 31.5 % (35.0-46.0); MEAN CORPUSCULAR HEMOGLOBIN 30.4 PG (27.0-34.0); MEAN CORPUSCULAR HGB CONC 33.3 % (32.0-36.0); PLATELET COUNT 217 TH/MM3 (150-450); RED BLOOD COUNT 3.46 MIL/MM3 (4.00-5.30); RED CELL DISTRIBUTION WIDTH 14.3 % (11.6-17.2); REVIEW FLAG FINAL; WHITE BLOOD COUNT 10.5 TH/MM3 (4.0-11.0)
[2017-02-08 05:18] LABS: BICARBONATE 23.6 MEQ/L (21.0-32.0); MAGNESIUM 1.7 MG/DL (1.5-2.5); POTASSIUM 3.7 MEQ/L (3.5-5.1)
[2017-02-08 07:07] LABS: CALCIUM-PROTEIN CORRECTED 8.2 MG/DL (8.5-10.1)
[2017-02-08] MEDS: DOCUSATE SODIUM 50 MG/SENNA 8.6 MG TAB PO SCH ×2 (09:00→21:09)
[2017-02-08] MEDS: ASPIRIN 81 MG CHEW TAB PO SCH (09:23)
[2017-02-08] MEDS: METOPROLOL TARTRATE 25 MG TAB PO SCH ×2 (09:23→21:09)
[2017-02-08] MEDS: FUROSEMIDE 20 MG TAB PO SCH (09:23)
[2017-02-08] MEDS: PANTOPRAZOLE SOD 40 MG DELAYED RELEASE TAB PO SCH (09:23)
[2017-02-08] MEDS ORDERED: OXYGENTANK NAS.CANULA (14:30)
[2017-02-08] MEDS ORDERED: FUROSEMIDE 20 MG/2 ML VIAL IV PUSH ONE (14:30)
--- NOTE | 2017-02-08 14:36 | HHI.FF ---
Face to Face Verification Diagnosis: (1) Incarcerated hernia (2) Small bowel obstruction (3) Pneumonia (4) Hypoxia (5) Congestive heart failure (6) Physical deconditioning Physical Therapy Order: Evaluate and Treat, Improve ambulation, Strength and gait training Home Health Nursing Order: Medical education Signs/symptoms of disease process CHF education Oxygen administration education Nursing assessment with vital signs I have seen patient Kiesha Ochoa on 02/08/17. My clinical findings support the need for the requested home health care services because: Ltd mobility - disease progression Patient has SOB Deconditioned w/ increased weakness High risk of falls I certify that my clinical findings support that this patient is homebound because: Post-op weakness Poor cardiac reserve Mae Flores MD Feb 08, 2017 14:36
[2017-02-08] MEDS: LEVOFLOXACIN 750 MG TAB PO SCH (16:00)
[2017-02-08] MEDS: POTASSIUM CHLORIDE 10 MEQ CAP PO SCH ×2 (16:35→21:13)
--- NOTE | 2017-02-08 16:46 | HHI.PR ---
Subjective Remarks Follow-up for hypoxia, pneumonia, and CHF Patient has no complaints and very anxious to go home. She denies any shortness of breathing. She continues to feel weak but she stated that she is ambulating. Objective Vitals Vital Signs Date Time Temp Pulse Resp B/P Pulse Ox O2 Delivery O2 Flow Rate FiO2 02/08/17 16:00 96.8 77 17 114/68 95 02/08/17 12:00 97.7 75 17 115/68 95 02/08/17 08:00 97.9 72 16 112/65 95 02/08/17 04:00 97.4 78 20 126/78 96 02/08/17 00:00 97.6 82 20 120/80 97 02/07/17 20:45 74 02/07/17 20:00 98.2 86 20 116/76 95 I/O 02/07/17 02/07/17 02/07/17 02/08/17 02/08/17 02/08/17 07:00 15:00 23:00 07:00 15:00 23:00 Intake Total 240 ml 475 ml 460 ml 220 ml 120 ml Output Total 1000 ml 750 ml 450 ml 300 ml Balance -760 ml 475 ml -290 ml -230 ml -180 ml Intake Oral 240 ml 475 ml 460 ml 220 ml 120 ml Output Urine Total 1000 ml 750 ml 450 ml 300 ml # Voids 4 # Bowel Movements 0 0 0 2 0 Result Diagram: 02/08/1744202/08/17442 Objective Remarks GENERAL: in NAD. CARDIOVASCULAR: Regular rate and rhythm without murmurs, gallops, or rubs. RESPIRATORY: B/L crackles. GASTROINTESTINAL: Abdomen soft, non-tender, nondistended. wounds are dry clean and intact. MUSCULOSKELETAL: No cyanosis, or edema. BACK: Nontender without obvious deformity. No CVA tenderness. Procedures 02/02- s/p incarcerated umbilical hernia repair Medications and IVs Current Medications Lactated Ringer's (Lr 1000 ml Inj) 1,000 ml @ 63 mls/hr [id number] IV Last administered on 02/02/17 23:43; Start 02/02/17 at 23:00; Stop 02/03/17 at 21:29 ; Status DC Aspirin (Aspirin Chew) 81 mg DAILY PO Last administered on 02/08/17 09:23; Start 02/03/17 at 09:00 Pantoprazole Sodium (Protonix) 40 mg DAILY PO Last administered on 02/08/17 09 :23; Start 02/03/17 at 09:00 Metoprolol Tartrate (Lopressor) 25 mg BID PO Last administered on 02/08/17 09: 23; Start 02/03/17 at 09:00 Atorvastatin Calcium (Lipitor) 40 mg HS PO Last administered on 02/07/17 21:01 ; Start 02/03/17 at 21:00 Enoxaparin Sodium 30 mg 30 mg Q24H SQ Last administered on 02/07/17 22:45; Start 02/02/17 at 23:00 Piperacillin Sod/ Tazobactam Sod (Zosyn 3.375 Gm Premix) 50 ml @ 100 mls/hr Q6H IV Last administered on 02/08/17 12:45; Start 02/02/17 at 23:00; Stop at 14:32; Status DC Dextrose (D50w (Vial) Inj) 25 ml UNSCH PRN IV PUSH HYPOGLYCEMIA-SEE COMMENTS Last administered on 02/03/17 13:05; Start 02/02/17 at 23:00; Stop 02/06/17 at 10:27; Status DC Glucagon (Glucagon Inj) 1 mg UNSCH PRN OTHER HYPOGLYCEMIA-SEE COMMENTS; Start 02/02/17 at 23:00; Stop 02/06/17 at 10:27; Status DC Insulin Human Regular 1 1 ACHS SLIDING SCALE SQ Last administered on 21:00; Start 02/03/17 at 07:00; Stop 02/06/17 at 10:27; Status DC Potassium Chloride 100 ml @ 50 mls/hr Q2H IV Last administered on 02/03/17 06 :48; Start 02/03/17 at 03:00; Stop 02/03/17 at 06:59; Status DC Potassium Chloride (KCl 20 Meq Premix Inj) 100 ml @ 50 mls/hr Q2H IV Last administered on 02/03/17 10:39; Start 02/03/17 at 07:00; Stop 02/03/17 at 10:59 ; Status DC Gelatin (Gelfoam 100 Top) 1 foam STK-MED ONCE .ROUTE ; Start 02/03/17 at 10:23; Stop 02/03/17 at 10:24; Status DC Bupivacaine HCl/ Epinephrine Bitart (Sensorcaine-Epinephrine 0.25% Inj) 50 ml STK-MED ONCE .ROUTE Last administered on 02/03/17 11:43; Start 02/03/17 at 10: 23; Stop 02/03/17 at 10:24; Status DC Midazolam HCl (Versed Inj) 2 mg STK-MED ONCE .ROUTE ; Start 02/03/17 at 10:34; Stop 02/03/17 at 10:35; Status DC Sugammadex Sodium (Bridion Inj) 200 mg STK-MED ONCE IV PUSH ; Start 02/03/17 at 10:34; Stop 02/03/17 at 10:35; Status DC Famotidine (Pepcid Inj) 20 mg STK-MED ONCE .ROUTE ; Start 02/03/17 at 10:35; Stop 02/03/17 at 10:36; Status DC Midazolam HCl (Versed Inj) 2 mg STK-MED ONCE .ROUTE Last administered on 10:46; Start 02/03/17 at 10:45; Stop 02/03/17 at 10:46; Status DC Famotidine (Pepcid Inj) 20 mg STK-MED ONCE .ROUTE Last administered on 10:45; Start 02/03/17 at 10:45; Stop 02/03/17 at 10:46; Status DC Fentanyl Citrate (fentaNYL INJ) 250 mcg STK-MED ONCE .ROUTE ; Start 02/03/17 at 13:07; Stop 02/03/17 at 13:08; Status DC Miscellaneous Information ALL NURSING DEPARTME... UNSCH PRN XX SEE LABEL COMMENTS; Start 02/03/17 at 12:56; Stop 02/04/17 at 12:55; Status DC Morphine Sulfate (Morphine Inj) 4 mg Q3H PRN IV PUSH PAIN SCALE 1 TO 7 Last administered on 02/03/17 15:26; Start 02/03/17 at 14:00; Stop 02/08/17 at 14:32 ; Status DC Ondansetron HCl (Zofran Inj) 4 mg Q6H PRN IV PUSH NAUSEA; Start 02/03/17 at 14: 00 Midazolam HCl 2 mg 2 mg STK-MED ONCE .ROUTE ; Start 02/03/17 at 14:26; Stop at 14:27; Status DC Potassium Chloride 100 ml @ 50 mls/hr Q2H IV Last administered on 02/04/17 00 :47; Start 02/03/17 at 22:00; Stop 02/04/17 at 01:59; Status DC Potassium Chloride/Dextrose/ Sod Cl (D5-NS + KCl 40 Meq Inj) 1,000 ml @ 70 mls/ hr [id number] IV Last administered on 02/04/17 12:23; Start 02/03/17 at 21:45; Stop 02/04/17 at 13:29; Status DC Potassium Chloride 40 meq 40 meq NOW ONCE NG ; Start 02/03/17 at 21:45; Stop at 21:46; Status Cancel Potassium Chloride/Dextrose/ Sod Cl (D5-1/2 NS + KCl 20 Meq Inj) 1,000 ml @ 70 mls/hr [id number] IV Last administered on 02/05/17 04:00; Start 02/04/17 at 14:00 ; Stop 02/05/17 at 11:22; Status DC Senna/Docusate Sodium (Mi-Colace) 1 tab BID PO Last administered on 21:11; Start 02/05/17 at 21:00 Potassium Chloride (KCl) 30 meq ONCE ONCE PO Last administered on 02/06/17 21 :12; Start 02/06/17 at 19:45; Stop 02/06/17 at 19:46; Status DC Furosemide (Lasix Inj) 40 mg ONCE ONCE IV PUSH Last administered on 02/06/17 21:11; Start 02/06/17 at 19:45; Stop 02/06/17 at 19:46; Status DC Potassium Chloride (KCl) 30 meq ONCE ONCE PO Last administered on 02/07/17 09 :50; Start 02/07/17 at 08:00; Stop 02/07/17 at 08:01; Status DC Potassium Chloride (KCl) 30 meq ONCE ONCE PO Last administered on 02/07/17 09 :53; Start 02/07/17 at 09:45; Stop 02/07/17 at 09:49; Status DC Furosemide 20 mg 20 mg DAILY PO Last administered on 02/08/17 09:23; Start at 11:30 Magnesium Sulfate/ Dextrose (Magnesium Sulfate 1 Gm Premix) 100 ml @ 100 mls/ hr ONCE ONCE IV Last administered on 02/07/17 13:48; Start 02/07/17 at 11:30 ; Stop 02/07/17 at 12:29; Status DC Potassium Chloride (KCl) 40 meq ONCE ONCE PO Last administered on 02/07/17 18 :04; Start 02/07/17 at 17:15; Stop 02/07/17 at 17:16; Status DC Furosemide (Lasix Inj) 20 mg ONCE ONCE IV PUSH Last administered on 02/08/17 16:00; Start 02/08/17 at 14:30; Stop 02/08/17 at 14:38; Status DC Potassium Chloride (KCl) 10 meq BID PO Last administered on 02/08/17 16:35; Start 02/08/17 at 14:30 Levofloxacin (Levaquin) 750 mg DAILY PO Last administered on 02/08/17 16:00; Start 02/08/17 at 14:45 A/P Assessment and Plan 76-year-old female admitted for small bowel obstruction Small bowel obstruction secondary to incarcerated umbilical hernia status post explore lap Status post exploratory lap with repair 02/03 -Pain resolved and tolerating by mouth intake. -Surgery ff -on narcotics and pericolic . S/p Cholecystitis, choledocholithiasis S/p 2 lap rosa and IOC without successful extraction of the CBD stone S/p ERCP and sphincterotomy, which was complicated by pancreatitis. over 2 weeks ago at OSH. -Asymptomatic. -Patient currently on Zosyn but will discontinue this and start patient on Levaquin PO. Anemia of acute blood loss due to surgery - stable, ff H&H Acute respiratory failure with hypoxia -Improving but patient continues to be on oxygen. -Most likely due to combination of pneumonia and being volume overloaded. -CT scan showed bilateral pneumonia with pleural effusion. Patient also has an elevated BNP of 1500. Echo showed EF of 30-35%. -On Zosyn but this will be DC'd and start patient on Levaquin. Acute on chronic systolic heart failure -Echo showed EF of 3035% -Most likely iatrogenic due to patient being ill and on IV fluids. -Patient already started on Lasix. We'll give another dose IV. Bilateral pneumonia -Clinically patient is improving. DC Zosyn and add Levaquin PO. Hypokalemia/hypomagnesemia -We place as needed. Hypernatremia -Resolved. Due to dehydration. hx hypertension, history of AICD - cont BB, asa Hypocalcemia, corrected Ca -Continue replenished. history of CAD, history of CVA -cont asa, bb,IV Vasotec for blood pressure control if needed. History of TAAA -Vascular surgery- Dr. Patricia on board- elective surgery to be planned at later date/outpatient f/u. deconditioning-consult PT Lovenox for DVT prophylaxis PPI for GI prophylaxis Discharge Planning Will discontinue IV antibiotics and put on by mouth antibiotics. Will need to get another dose of IV Lasix since patient continues to be hypoxic but she is improving. She continues to do well she can go home tomorrow with home health along with oxygen. Mae Flores MD Feb 08, 2017 16:46
[2017-02-08] MEDS: ATORVASTATIN 40 MG TAB PO SCH (21:09)
[2017-02-08] MEDS: ENOXAPARIN SODIUM 30 MG/0.3 ML SYRINGE SQ SCH (21:13)
[2017-02-09] VITALS: BP 102/58; PULSE 85; RESP 18; TEMP 97.5; O2SAT 93
[2017-02-09 04:00] VITALS: BP 98/63; PULSE 79; RESP 18; TEMP 97.9; O2SAT 93
[2017-02-09 05:21] LABS: BICARBONATE 27.9 MEQ/L (21.0-32.0); MAGNESIUM 1.7 MG/DL (1.5-2.5); POTASSIUM 3.2 MEQ/L (3.5-5.1)
[2017-02-09 05:35] LABS: HEMATOCRIT 31.8 % (35.0-46.0); MEAN CELL VOLUME 90.9 FL (80.0-100.0); MEAN CORPUSCULAR HGB CONC 32.9 % (32.0-36.0); PLATELET COUNT 242 TH/MM3 (150-450); RED BLOOD COUNT 3.49 MIL/MM3 (4.00-5.30); RED CELL DISTRIBUTION WIDTH 14.3 % (11.6-17.2); REVIEW FLAG FINAL; WHITE BLOOD COUNT 11.1 TH/MM3 (4.0-11.0)
[2017-02-09 08:00] VITALS: BP 134/77; PULSE 78; RESP 16; TEMP 98.4; O2SAT 98
[2017-02-09] MEDS: POTASSIUM CHLORIDE 10 MEQ CAP PO SCH (08:25)
[2017-02-09] MEDS: FUROSEMIDE 20 MG TAB PO SCH (08:25)
[2017-02-09] MEDS: LEVOFLOXACIN 750 MG TAB PO SCH (08:26)
[2017-02-09] MEDS: METOPROLOL TARTRATE 25 MG TAB PO SCH (08:26)
[2017-02-09] MEDS: DOCUSATE SODIUM 50 MG/SENNA 8.6 MG TAB PO SCH (08:26)
[2017-02-09] MEDS: PANTOPRAZOLE SOD 40 MG DELAYED RELEASE TAB PO SCH (08:27)
[2017-02-09] MEDS: ASPIRIN 81 MG CHEW TAB PO SCH (08:27)
[2017-02-09] MEDS ORDERED: Aspirin Chew PO (09:16)
[2017-02-09] MEDS ORDERED: LISI-519 PO (09:16)
[2017-02-09] MEDS ORDERED: PANT40TA3 PO (09:16)
[2017-02-09] MEDS ORDERED: POTA10CA PO (09:16)
[2017-02-09] MEDS ORDERED: LEVA750T PO (09:16)
[2017-02-09] MEDS ORDERED: FURO20TA PO (09:16)
[2017-02-09] MEDS ORDERED: LIPI40TA PO (09:16)
[2017-02-09] MEDS ORDERED: METO25TA3 PO (09:16)
--- NOTE | 2017-02-09 09:19 | HHI.DS ---
Discharge Summary Admission Date Feb 02, 2017 at 19:18 Discharge Date: Feb 10, 2017 Admitting Diagnosis abdominal pain (1) Incarcerated hernia ICD Code: K46.0 Diagnosis: Principal (2) Physical deconditioning ICD Code: R53.81 Diagnosis: Secondary (3) Small bowel obstruction ICD Code: K56.69 Diagnosis: Principal (4) Congestive heart failure ICD Code: I50.9 Diagnosis: Principal (5) Hypoxia ICD Code: R09.02 Diagnosis: Principal (6) Abdominal aneurysm ICD Code: I71.4 Diagnosis: Secondary Procedures 02/02- s/p incarcerated umbilical hernia repair Brief History - From Admission Patient is a 76-year-old female with history of transabdominal aortic aneurysm, history of 2 CVAs in the past, history of CAD status post NE 2 years ago, history of AICD placement who had the laparoscopic cholecystectomy done with the ER 2 weeks ago. For the past 5 days had been complaining of nausea vomiting and abdominal pain. Per with poor po intake. sHe was transferred here on the request of the family to be evaluated by Dr. Patricia the vascular surgeon who did her aortic aneurysm repair. On evaluation here was noted to have an incarcerated umbilical hernia and GS was promptly called, had laparoscopic surgery with repair of incarcerated hernia. Patient is currently seen postoperatively with at bedside. Patient appears weak , open eyes and followed all commands but however is still under her anesthesia effect. She moves all extremities equally. Just received IV pain meds. [facility] consulted for management of electrolyte abnormalities and the comorbid factors. CBC/BMP: 02/09/17 0417 02/09/17416 Significant Findings Laboratory Tests Test 02/07/17 02/07/17 02/08/17 02/09/17 04:51 15:57 04:43 04:17 White Blood Count 12.0 TH/MM3 11.1 TH/MM3 (4.0-11.0) (4.0-11.0) Red Blood Count 3.50 MIL/MM3 3.46 MIL/MM3 3.49 MIL/MM3 (4.00-5.30) (4.00-5.30) (4.00-5.30) Hemoglobin 10.2 GM/DL 10.5 GM/DL 10.5 GM/DL (11.6-15.3) (11.6-15.3) (11.6-15.3) Hematocrit 32.1 % 31.5 % 31.8 % (35.0-46.0) (35.0-46.0) (35.0-46.0) Mean Corpuscular Hemoglobin 31.8 % Concent (32.0-36.0) Neutrophils (%) (Auto) 80.1 % (16.0-70.0) Lymphocytes (%) (Auto) 8.1 % (9.0-44.0) Monocytes (%) (Auto) 10.8 % (0.0-8.0) Neutrophils # (Auto) 9.6 TH/MM3 (1.8-7.7) Monocytes # (Auto) 1.3 TH/MM3 (0-0.9) Neutrophils % (Manual) 74 % (16-70) Band Neutrophils % 8 % (0-6) Lymphocytes % 6 % (9-44) Monocytes % 11 % (0-8) Neutrophils # (Manual) 9.8 TH/MM3 (1.8-7.7) Acanthocytes OCC (NORMAL) Potassium Level 2.9 MEQ/L 3.2 MEQ/L 3.2 MEQ/L (3.5-5.1) (3.5-5.1) (3.5-5.1) Estimat Glomerular Filtration 78 ML/MIN (>89) 64 ML/MIN (>89) 87 ML/MIN (>89) 77 ML/MIN (>89) Rate Calcium Level 7.3 MG/DL 7.5 MG/DL 7.2 MG/DL 7.6 MG/DL (8.5-10.1) (8.5-10.1) (8.5-10.1) (8.5-10.1) Protein Corrected Calcium 8.3 MG/DL 8.2 MG/DL (8.5-10.1) (8.5-10.1) Total Protein 5.3 GM/DL 5.3 GM/DL (6.4-8.2) (6.4-8.2) Random Glucose 149 MG/DL 113 MG/DL (74-106) (74-106) Imaging Last Impressions Chest CT 02/07/17 0000 Signed Impressions: Service Date/Time: Tuesday, February 07, 2017 09:03 - CONCLUSION: 1. Bilateral pneumonic infiltrates, right greater than left. 2. Small to moderate-sized right-sided effusion. 3. Improving pneumobilia. 4. 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 Keo Rodríguez MD Chest X-Ray 02/05/17 0000 Signed Impressions: Service Date/Time: Sunday, February 05, 2017 19:54 - CONCLUSION: 1. Dense consolidation right upper lobe most characteristic of pneumonia. There may also be a mild pulmonary edema pattern with small pleural effusions and cardiomegaly. Carlos Alberto Singh MD Abdomen/Pelvis CT 02/02/17 0000 Signed Impressions: Service Date/Time: Thursday, February 02, 2017 22:40 - CONCLUSION: 1. Small bowel obstruction with marked distention of bowel loops and stomach secondary to an abdominal wall hernia containing a focal loop of small bowel at the level of the umbilicus. 2. The thoracic and abdominal aortic aneurysms are noted as described above. 3. Pneumobilia. 4. Pneumonia and right effusion. Carlos Eduardo Davenport MD PE at Discharge GENERAL: in NAD. CARDIOVASCULAR: Regular rate and rhythm without murmurs, gallops, or rubs. RESPIRATORY: mild B/L crackles. GASTROINTESTINAL: Abdomen soft, non-tender, nondistended. wounds are dry clean and intact. MUSCULOSKELETAL: No cyanosis, or edema. BACK: Nontender without obvious deformity. No CVA tenderness. Pt update on day of discharge f/u for SOB patient denied any SOB and she does not have oxygen on. She also denied any cough or pain. Patient asking to go home. she is walking the hallways. per daughter and who are at the bedside patient has hx of CAD and CHF. I also asked for her medication list because her medication here did not make sense with her dx. She also has hx of atrial fibrillation. per daughter patient has dementia and forgets. her daughter ask for a note so that she can take care of her mother. Hospital Course 76-year-old female admitted for small bowel obstruction Small bowel obstruction secondary to incarcerated umbilical hernia status post explore lap Status post exploratory lap with repair 02/03 -Pain resolved and tolerating by mouth intake. -Surgery ff -on narcotics and pericolic . -she was able to wean off narcotics during hospital course. S/p Cholecystitis, choledocholithiasis S/p 2 lap rosa and IOC without successful extraction of the CBD stone S/p ERCP and sphincterotomy, which was complicated by pancreatitis. over 2 weeks ago at OSH. -improved after treatment. -Patient put on Zosyn but day before discharge put on Levaquin PO. Anemia of acute blood loss due to surgery - stable, ff H&H Acute respiratory failure with hypoxia -due to PNA and CHF exacerbation. -CT scan showed bilateral pneumonia with pleural effusion. Patient also has an elevated BNP of 1500. Echo showed EF of 30-35%. -On Zosyn but this will be DC'd and start patient on Levaquin. -improved during hospital course but failed walk test so sent home on oxygen. Acute on chronic systolic heart failure -Echo showed EF of 30-35% -Most likely iatrogenic due to patient being ill and on IV fluids. -Patient started on Lasix and symptoms improved. Bilateral pneumonia -She was on Zosyn and later switched to Levaquin PO. she dd well with treatment. Hypokalemia/hypomagnesemia -replace as needed. Hypernatremia -Resolved. Due to dehydration. hx hypertension, history of AICD - cont BB, asa Hypocalcemia, corrected Ca -Continue replenished. history of CAD, history of CVA -cont asa, bb,IV Vasotec for blood pressure control if needed. History of TAAA -Vascular surgery- Dr. Patricia on board- elective surgery to be planned at later date/outpatient f/u. deconditioning-consult PT Pt Condition on Discharge: Good Discharge Disposition: Disch w/ Home Health Serv Discharge Time: > 30 minutes Discharge Instructions DIET: Follow Instructions for: Heart Healthy Diet Activities you can perform: Regular-No Restrictions Follow up Referrals: PCP Follow-up - 1 Week Surgical - 2 Weeks with Frank Bui MD Vascular Surgery - 2 Weeks New Medications: Amiodarone (Amiodarone) 200 Mg Tab 200 MG PO BID Regulate Heart Beat #60 Ref 0 TAB Carvedilol (Carvedilol) 12.5 Mg Tab 12.5 MG PO BID CAD #60 Ref 0 TAB Clopidogrel (Plavix) 75 Mg Tab 75 MG PO DAILY Blood Clot Prevention #30 Ref 0 TAB Losartan (Losartan) 25 Mg Tab 12.5 MG PO DAILY Blood Pressure Management #15 Ref 0 TAB Magnesium (Magnesium) 250 Mg Tab 250 TAB PO DAILY low magnesium #30 Ref 0 TAB Misc. Devices (Roller Walker) 1 Mis Mis 1 EA .ROUTE NOW #1 EA Oxygen tank (Oxygen tank) 1 Ea Tank 2 LITER TERRELL.CANULA CONTINUOUS Oxygen Concentrator Portable Gaseous 2 L/min via Nasal Cannula Continuous For 99 months HYPOXEMIA PREVENTION #2 CYLINDER Atorvastatin (Lipitor) 40 Mg Tab 40 MG PO HS lowers cholesterol #30 Ref 0 TAB Furosemide (Furosemide) 20 Mg Tab 20 MG PO DAILY diurectic #30 Ref 0 TAB Levofloxacin (Levaquin) 750 Mg Tab 750 MG PO DAILY pneumonia #14 TAB Potassium Chloride ER (Potassium Chloride ER) 10 Meq Cap 20 MEQ PO BID only take medication while on diurectic (lasix). low potassium and on diuretic #60 Ref 0 CAP ([Aspirin Chew]) 81 MG CHEW 81 MG PO DAILY #30 Ref 0 TAB.CHEW Mae Flores MD Feb 09, 2017 09:19
[2017-02-09] MEDS ORDERED: PILL SPLITTER OTHER PRN (09:30)
[2017-02-09 09:56] VITALS: PULSE 91
[2017-02-09] MEDS ORDERED: POTASSIUM CHLORIDE 10 MEQ CAP PO ONE (10:00)
[2017-02-09] MEDS ORDERED: LISINOPRIL 5 MG TAB PO SCH (10:00)
[2017-02-09] MEDS ORDERED: CARV12.52 PO (11:28)
[2017-02-09] MEDS ORDERED: ESSE250T PO (11:28)
[2017-02-09] MEDS ORDERED: LOSA25TA PO (11:28)
[2017-02-09] MEDS ORDERED: AMIO200T PO (11:28)
[2017-02-09] MEDS ORDERED: PLAV75TA29 PO (11:28)
[2017-02-09] MEDS ORDERED: POTASSIUM CHLORIDE 10 MEQ CAP PO SCH (21:00)
== END 2017-02-09 12:49 | disposition home health service (06) | DRG 353 ==
LOC: N07B 19:18
PROVIDERS: ADMIT Family Medicine; ATTEND Family Medicine
PROC: 0DJD3ZZ Inspection of Lower Intestinal Tract, Percutaneous Approach (ICD-10-PCS; 2017-02-03)
PROC: 0WQF0ZZ Repair Abdominal Wall, Open Approach (ICD-10-PCS; principal; 2017-02-03 10:50)
DX: K43.0 Incisional hernia with obstruction, without gangrene (principal); J96.01 Acute respiratory failure with hypoxia; J18.9 Pneumonia, unspecified organism; E87.0 Hyperosmolality and hypernatremia; I50.23 Acute on chronic systolic (congestive) heart failure; I71.6 Thoracoabdominal aortic aneurysm, without rupture; I11.0 Hypertensive heart disease with heart failure; E86.0 Dehydration; D62 Acute posthemorrhagic anemia; E87.6 Hypokalemia; E78.5 Hyperlipidemia, unspecified; Z86.73 Personal history of transient ischemic attack (TIA), and cerebral infarction without residual deficits; Z87.891 Personal history of nicotine dependence; Z90.49 Acquired absence of other specified parts of digestive tract; I25.10 Atherosclerotic heart disease of native coronary artery without angina pectoris; I25.2 Old myocardial infarction; Z95.810 Presence of automatic (implantable) cardiac defibrillator; E83.51 Hypocalcemia
CPT/HCPCS: 71010; 71250; 74176; 80048; 80076; 82150; 82948; 83690; 83735; 83880; 84155; 85007; 85025; 85027; 86850; 86900; 86901; 93005; 93306; 94150; 94620; J1650; J1940; J2250; J2270; J2370; J2405; J2543; J3010; J3475; J3480; J7120